=== PATIENT | male | born 1940 | race Caucasian/White ===

== ENCOUNTER → 2017-02-08 09:38 | Outpatient (CLI) | payer MEDICARE ==
[2016-01-17 13:26] VITALS: BMI 42.5
[~2017-02-08 09:38] MED LIST: ADIPEX-P37.5 MG PO; AMBIEN10 MG PO; HYDROCODONE-APA1 TAB PO; IBUPROFEN800 MG PO; LYRICA50 MG PO; MOBIC7.5 MG PO; PLAVIX75 MG PO; PRAVACHOL40 MG PO; PRILOSEC20 MG PO; TEKTURNA300 MG PO; TRIBENZOR 40-51 EAC1 PO; ZANTAC150 MG PO
== END | disposition home or self-care (01) ==
LOC: D.US 09:38
DX: I65.23 Occlusion and stenosis of bilateral carotid arteries (principal)

== ENCOUNTER → 2018-02-04 08:33 | Outpatient (CLI) | payer MEDICARE ==
[2016-01-17 13:26] VITALS: BMI 42.5
== END | disposition home or self-care (01) ==
LOC: D.HCCARDIO 08:33
DX: I25.10 Atherosclerotic heart disease of native coronary artery without angina pectoris (principal)

== ENCOUNTER 2018-02-19 10:55 | Outpatient (CLI) | payer MEDICARE ==
[~2018-02-19] VITALS: Ht 180.3 cm; Wt 140.9 kg
--- NOTE | ~2018-02-19 | HEMODYNAMI ---
PATIENT:GARLAND CHICAS MEDICAL RECORD: [id number] : 44 LOCATION:[facility] ADMISSION DATE: 02/19/18 Generatedon:02/19/201813:38 Patient name: GARLAND CHICAS Patient #: [id number] SSN: : [id number] Date of study: 02/19/2018 Page: Of Hemodynamic Procedure Report Patient Data Patient Demographics Procedure consent was obtained First Name: GARLAND Gender: Male Last Name: AVIVA : 1940 [facility] Initial: JULIO Age: 77 year(s) Patient #: [id number] Race: Unknown Additional ID: [id number] Contact details Address: [address] [place], [place] [address] State: [place] City: [place] Zip code: [address] Past Medical History Allergies Allergen Reaction Date Comments Reported Sulfa drugs 01/17/2016 Sulfa drugs 02/19/2018 Admission Admission Data Admission Date: 02/19/2018 Admission Time: 10:55 Admit Source: Other Lab Results Lab Result Date: 02/19/2018 Lab Result Time: 0:00 Biochemistry Name Units Result Min Max BUN mg/dl 26 --(----)-* 7 18 Creatinine mg/dl 1.1 --(--*-)-- 0.6 1.3 CBC Name Units Result Min Max Hemoglobin g/dl 13.5 --(*---)-- 13.5 17.5 Procedure Procedure Types Cath Procedure Diagnostic Procedure LHC LHC w/Coronaries Procedure Description Procedure Date Procedure Date: 02/19/2018 Procedure Start Time: 13:12 Procedure End Time: 13:37 Procedure Staff Name Function Jameson Nolan RT Monitor Toni Moore RN Nurse Jong Ahumada MD Performing Physician Gerry Saavedra RT Scrub Procedure Data Cath Procedure Fluoroscopy Diagnostic fluoroscopy Total fluoroscopy Time: 2.3 time: 2.3 min min Diagnostic fluoroscopy Total fluoroscopy dose: dose: 593.45 mGy 593.45 mGy Contrast Material Contrast Material Type Amount (ml) Isovue 300 103 Entry Location Entry Primary Successful Side Size Upsize Upsize Entry Closure Succes sful Closure Location (Fr) 1 (Fr) 2 (Fr) Remarks Device Remarks Femoral Right 5 Fr Exoseal artery Diagnostic catheters Device Type Used For End Catheter Placement MULTIPACK JL 4.0 5Fr Left Coronary catheter Angiography MULTIPACK 3DRC 5Fr Right Coronary catheter Angiography MULTIPACK Pigtail 5 Fr LV Angiography catheter Procedure Complications No complications Procedure Medications Medication Administration Route Dosage Oxygen etCO2 Nasal cannula 2 l/min Heparin Flush Bag added to field 2 bags (1000units/500ml NS) 0.9% NaCl I.V. 100 ml/hr Fentanyl I.V. 50 mcg Versed I.V. 1 mg Fentanyl I.V. 50 mcg Versed I.V. 1 mg Fentanyl I.V. 50 mcg Fentanyl I.V. 50 mcg Versed I.V. 1 mg Versed I.V. 1 mg Hemodynamics Rest HGB: 13.5 (g/dl) Heart Rate: 77 (bpm) Pressure Samples Time Site Value (mmHg) Purpose Heart Use Rate(bpm) 13:25 LV 132/12,24 Snapshot 71 13:25 LV 134/3,18 EDP 79 13:28 AO 126/61(85) Pullback 74 13:28 LV 133/8,22 Pullback 74 Gradients Valve Time Site 1 Site 2 Mean SEP/DFP Peak To Heart Use (mmHg) (sec/min) Peak Rate (mmHg) (bpm) Aortic 13:28 LV AO 11 16 7 74 133/8,22 126/61(85) Calculations Valve P-P Mean Valve Index Valve Source Name Gradient Area Flow (cm2) Aortic 7 11 7 11 Snapshots Pre Cath Intra NCS Post Cath Vital Signs Time Heart Resp SPO2 etCO2 NIBP (mmHg) Rhythm Pain Sedation Rate (ipm) (%) (mmHg) Status Level (bpm) 13:04:16 72 16 98 40 163/78(123) NSR 0 (11) 10(A) , No pain 13:08:59 78 16 96 25.6 144/67(107) NSR 0 (11) 10(A) , No pain 13:13:35 72 16 96 36.2 137/74(97) NSR 0 (11) 10(A) , No pain 13:18:11 68 16 94 40.7 147/68(111) NSR 0 (11) 9(A) , No pain 13:22:50 78 17 97 31.6 134/73(100) NSR 0 (11) 9(A) , No pain 13:27:25 68 16 96 33.1 143/64(99) NSR 0 (11) 9(A) , No pain 13:32:03 71 16 96 40.7 141/66(105) NSR 0 (11) 9(A) , No pain 13:34:25 75 18 96 33.2 137/69(100) NSR 0 (11) 9(A) , No pain Medications Time Medication Route Dose Verified Delivered Reason Notes Effe ctiveness by by 13:03:33 Oxygen etCO2 2 Jong Toni Per Nasal l/min Brandyn Moore RN physician cannula 13:03:41 Heparin Flush added 2 Jong Toni used for Bag to bags rBandyn Moore boiler/chiller technician (1000units/500ml field NS) 13:03:50 0.9% NaCl I.V. 100 Jong Toni Per ml/hr Brandyn Moore RN physician 13:11:49 Fentanyl I.V. 50 Jong Toni for mcg Brandyn Moore RN sedation 13:11:56 Versed I.V. 1 mg Jong Toni for Brandyn Moore RN sedation 13:13:25 Fentanyl I.V. 50 Jong Toni for mcg Brandyn Moore RN sedation 13:13:29 Versed I.V. 1 mg Jong Toni for Brandyn Moore RN sedation 13:16:15 Fentanyl I.V. 50 Jong Toni for mcg Brandyn Moore RN sedation 13:19:17 Fentanyl I.V. 50 Jong Toni for mcg Brandyn Moore RN sedation 13:22:08 Versed I.V. 1 mg Jong Toni for Brandyn Moore RN sedation 13:26:42 Versed I.V. 1 mg Jong Toni for Brandyn Moore RN sedation Procedure Log Time Note 12:40:50 Admit Source: Other 12:41:08 Diagnostic Cath status Elective 12:41:11 Toni Moore RN sent for patient. Start room use. 12:42:04 Time tracking: Regular hours (M-F 7:00 - 5:00) 12:42:09 Plan of Care:Hemodynamics will remain stable., Cardiac rhythm will remain stable., Comfort level will be maintained., Respiratory function will remain adequate., Patient/ family verbilizes understanding of procedure., Procedure tolerated without complication., Recovers from procedure without complications.. 12:44:58 H&P Date Dictated: 02/19/2018 Within 30 days and on chart.. 12:45:23 Lab Result : BUN 26 mg/dl 12:45:23 Lab Result : Creatinine 1.1 mg/dl 12:45:23 Lab Result : Hemoglobin 13.5 g/dl 13:02:39 Vital chart was started 13:03:33 Oxygen 2 l/min etCO2 Nasal cannula was administered by Toni Moore RN; Per physician; 13:03:41 Heparin Flush Bag (1000units/500ml NS) 2 bags added to field was administered by Toni Moore RN; used for procedure; 13:03:50 0.9% NaCl 100 ml/hr I.V. was administered by Toni Moore RN; Per physician; 13:08:40 Patient received from Pre/Post Procedure Room to CCL 3 Alert and oriented. Tansferred to table in Supine position. 13:08:41 Warm blankets applied, and narciso hugger turned on for patient comfort. 13:08:41 Correct patient and procedure confirmed by team. 13:08:42 Signed procedure consent form obtained from patient. 13:08:43 ECG and BP/O2 sat monitors applied to patient. 13:08:44 Baseline sample Acquired. 13:08:46 Rhythm: sinus rhythm 13:08:47 Full Disclosure recording started 13:08:49 Pre-procedure instructions explained to patient. 13:08:52 Family in waiting room. 13:08:54 Patient NPO since Midnight. 13:09:03 Patient allergic to Sulfa drugs 13:09:12 Is the patient allergic to Iodine/contrast media? No. 13:10:41 Is patient on blood thinner?No 13:10:43 Patient diabetic? No. 13:10:46 If diabetic: On Metformin? No 13:10:47 ----Pre-sedation anethsthesia assessment.---- 13:10:51 Previous problem with sedation/anesthesia? No ? 13:10:52 Snore? Yes 13:10:53 Sleep apnea? Yes 13:10:54 Deviated septum? No 13:10:55 Opens mouth fully? Yes 13:10:57 Sticks out tongue? Yes 13:10:59 Airway obstruction? No ? 13:11:00 Dentures? Yes ? 13:11:02 Dentures? No ? 13:11:04 Pre procedure: right dorsailis pedis pulse 2+ Normal; easily identifiable; not easily obliterated 13:11:14 IV patent on arrival in left antecubital with 0.9% NaCl at 10ml/hr. 13:11:16 Lab results completed and on chart. 13:11:19 Right groin area was prepped with chlora-prep and draped in sterile fashion 13:11:20 Alarms reviewed by R. N. 13:11:21 Sharps counted by scrub and verified by R.N. 13:11:22 Physician arrived 13:11:22 --------ALL STOP TIME OUT------ 13:11:23 Final Timeout: patient, procedure, and site verified with staff and physician. All members of the team are in agreement. 13:11:25 Right groin site verified by team. 13:11:30 Physical assessment completed. ASA score P 2 - A patient with mild systemic disease as per Jong Ahumada MD. 13:11:34 Sedation plan: IV Moderate Sedation Medication:Versed, Fentanyl 13:11:37 Use device set Femoral Dx 13:11:38 ACIST Syringe (56681) opened to sterile field. 13:11:39 Bag Decanter (2002) opened to sterile field. 13:11:39 Medline Cath Pack ([id number]) opened to sterile field. 13:11:40 DIAGNOSTIC WIRE .035 260cm J wire (016367) opened to sterile field. 13:11:42 ACIST Hand Control (98132) opened to sterile field. 13:11:42 ACIST Manifold (72863) opened to sterile field. 13:11:42 DIAGNOSTIC Multipack 5Fr catheter set (CE4643) opened to sterile field. 13:11:45 SHEATH 5FR [place] (QCQ995) opened to sterile field. 13:11:49 Fentanyl 50 mcg I.V. was administered by Toni Moore RN; for sedation; 13:11:56 Versed 1 mg I.V. was administered by Toni Moore RN; for sedation; 13:12:02 Procedure started. 13:12:09 Local anesthetic to right femoral artery with Lidocaine 2% by Jong Ahumada MD.INITIAL ACCESS ONLY 13:12:18 A 5 Fr sheath was inserted into the Right Femoral artery 13:12:28 A MULTIPACK JL 4.0 5Fr catheter was advanced over the wire and used for Left Coronary Angiography. 13:12:30 Tegaderm 4 x 4 (1626W) opened to sterile field. 13:12:33 Zero performed for pressure channel P1 13:13:25 Fentanyl 50 mcg I.V. was administered by Toni Moore RN; for sedation; 13:13:29 Versed 1 mg I.V. was administered by Toni Moore RN; for sedation; 13:14:22 Baseline sample Acquired. 13:14:31 LCA angiography performed. 13:16:15 Fentanyl 50 mcg I.V. was administered by Toni Moore RN; for sedation; 13:19:17 Fentanyl 50 mcg I.V. was administered by Toni Moore RN; for sedation; 13:19:51 Catheter exchanged over wire. 13:22:08 Versed 1 mg I.V. was administered by Toni Moore RN; for sedation; 13:23:21 A MULTIPACK 3DRC 5Fr catheter was advanced over the wire and used for Right Coronary Angiography. 13:23:26 RCA angiography performed. 13:23:28 Catheter exchanged over wire. 13:23:36 5 Fr jl 4 guide catheter was inserted over the wire 13:23:40 LCA angiography performed. 13:24:59 Catheter exchanged over wire. 13:25:07 A MULTIPACK Pigtail 5 Fr catheter was advanced over the wire and used for LV Angiography. 13:25:43 LV gram done using DENISE 13:25:50 EF : 50 % 13:26:42 Versed 1 mg I.V. was administered by Toni Moore RN; for sedation; 13:28:59 LV hemodynamics recorded. 13:29:02 Catheter exchanged over wire. 13:29:49 EXOSEAL 5Fr (EX500) opened to sterile field. 13:30:00 Sheath removed intact; hemostasis achieved with Exoseal to the Right Femoral artery. 13:30:02 Procedure ended.(Physican Out) 13:30:19 Fluoroscopy time 02.30 minutes. 13:30:30 Fluoroscopy dose: 593.45 mGy 13:30:30 Flurop Dose total: 593.45 13:30:36 Contrast amount:Isovue 300 103ml. 13:30:42 Sharps counted by scrub and verified by R.N. 13:30:53 Insertion/operative site no bleeding no hematoma. 13:31:03 Post-op/insertion site Right Femoral artery dressed using a 4 x 4 and Tegaderm. 13:31:18 Post right femoral artery:stable 13:31:20 Post Procedure Pulses reassessed and unchanged 13:31:23 Post procedure: right dorsailis pedis pulse 2+ Normal; easily identifiable; not easily obliterated. 13:31:28 Post procedure rhythm: sinus rhythm 13:31:30 Post procedure instruction explained to patient.Patient verbalizes understanding. 13:31:36 Procedure and supply charges have been captured, reviewed, submitted and are correct. 13:32:09 Procedure Complication : No complications 13:32:11 Vital chart was stopped 13:32:12 See physician's report for complete and final results. 13:32:18 Report given to Pre/Post Procedure Room. 13:32:21 Patient transfered to Pre/Post Procedure Room with Stretcher. 13:37:29 Procedure ended. 13:37:29 Full Disclosure recording stopped 13:37:33 End room use (Document Last) Device Usage Item Name Manufacture Quantity Catalog Hospital Part Current Minimal L ot# / Number Charge Number Stock Stock Serial# Code ACIST Acist 1 86634 546573 016476 112640 20 Syringe Medical (46947) Systems Pathfinder App Bag Microtek 1 686605 31324 230031 5 Decanter Medical Inc. () Medline Medline 1 [id number] 662287 37233 519192 5 Cath Pack ([id number]) DIAGNOSTIC St Mruray 1 446621 273762 737591 159951 30 WIRE .035 260cm J wire (671144) ACIST Hand Acist 1 58498 287150 551833 157747 5 Control Medical (13042) Systems Inc ACIST Acist 1 57414 557645 023135 383821 5 Manifold Medical (63959) Systems Inc DIAGNOSTIC Cardinal 1 LW7718 986640 85534 654069 30 M-[facility] 5Fr catheter set (NI3032) SHEATH 5FR Terumo 1 [id number] 691549 771235 675132 5 [place] (CDJ452) MULTIPACK Cardinal 1 440971 5 JL 4.0 5Fr Health catheter Tegaderm 4 3M 1 1626W 957829 634518 852645 5 x 4 (1626W) MULTIPACK Cardinal 1 199547 5 3DRC 5Fr Health catheter MULTIPACK Cardinal 1 899714 5 Pigtail 5 Health Fr catheter EXOSEAL 5Fr Cardinal 1 EX500 659447 794139 824645 10 (EX500) Health Signature Audit Hewitt Stage Time Signature Unsigned Intra-Procedure 02/19/2018 Jameson Nolan RT(R) 1:38:48 PM Signatures Monitor : Jameson Nolan RT Signature : Date : Time : [address] [address]
[2018-02-19] MEDS ORDERED: K-DUR20 MEQ PO (11:17)
[2018-02-19] MEDS ORDERED: FUROSEMIDE40 MG PO (11:17)
[2018-02-19] MEDS ORDERED: FLOMAX0.4 MG PO (11:17)
[2018-02-19] MEDS ORDERED: BISOPROLOL-HCT1 EAC1 PO (11:20)
[2018-02-19] MEDS ORDERED: BAYER CHEWABLE81 MG PO (11:20)
[2018-02-19 11:33] VITALS: BP 134/62; Ht 180.3 cm; Wt 140.9 kg
[2018-02-19 11:51] LABS: BASOPHILS 0.4 % (0-2); EOSINOPHILS 2.7 % (0-7); HEMATOCRIT 41.3 % (42.0-54.0); HEMOGLOBIN 13.5 g/dL (13.5-17.5); IMMATURE GRANULOCYTES 0.2 % (0-5); LYMPHOCYTES 15.9 % (15-50); MCHC 32.7 g/dL (31.0-37.0); MCV 91.8 fL (80.0-100.0); MEAN PLATELET VOLUME 9.7 fL (7.4-10.4); MONOCYTES 10.5 % (2-11); NEUTROPHILS 70.3 % (40-80); PLATELET COUNT 273 10x3/uL (130-400); RDW 14.5 % (11.5-14.5); WBC 9.1 10x3/uL (4.8-10.8)
[2018-02-19 12:02] LABS: ANION GAP 13.3 mmol/L (8-16); CALCIUM 8.5 mg/dL (8.5-10.1); CARBON DIOXIDE 29.5 mmol/L (21.0-32.0); CREATININE - SERUM 1.1 mg/dL (0.6-1.3); POTASSIUM - SERUM 3.8 mmol/L (3.5-5.1)
== END 2018-02-19 16:00 | disposition home or self-care (01) ==
LOC: D.CATH 10:55
PROVIDERS: Internal Medicine Cardiovascular Disease
DX: I20.9 Angina pectoris, unspecified (principal); I10 Essential (primary) hypertension; E78.5 Hyperlipidemia, unspecified; J45.909 Unspecified asthma, uncomplicated; G47.30 Sleep apnea, unspecified; M19.90 Unspecified osteoarthritis, unspecified site; Z88.2 Allergy status to sulfonamides; Z79.1 Long term (current) use of non-steroidal anti-inflammatories (NSAID); Z79.891 Long term (current) use of opiate analgesic; Z79.899 Other long term (current) drug therapy; Z01.812 Encounter for preprocedural laboratory examination

== ENCOUNTER 2018-04-08 11:56 | Day surgery (SDC) | payer MEDICARE ==
[~2018-04-08] VITALS: Ht 180.3 cm; Wt 140.9 kg
[~2018-04-08 11:56] MED LIST changes: +BAYER CHEWABLE81 MG PO; +BISOPROLOL-HCT1 EAC1 PO; +FLOMAX0.4 MG PO; +FUROSEMIDE40 MG PO; +K-DUR20 MEQ PO
[2018-04-08 12:35] LABS: BASOPHILS 0.4 % (0-2); EOSINOPHILS 1.5 % (0-7); HEMATOCRIT 38.8 % (42.0-54.0); HEMOGLOBIN 12.5 g/dL (13.5-17.5); IMMATURE GRANULOCYTES 0.2 % (0-5); MCH 29.1 pg (26.0-34.0); MCHC 32.2 g/dL (31.0-37.0); MCV 90.2 fL (80.0-100.0); MEAN PLATELET VOLUME 9.8 fL (7.4-10.4); MONOCYTES 6.3 % (2-11); NEUTROPHILS 74.6 % (40-80); PLATELET COUNT 261 10x3/uL (130-400); RDW 15.1 % (11.5-14.5); WBC 9.3 10x3/uL (4.8-10.8)
[2018-04-08 13:02] LABS: ANION GAP 18.5 mmol/L (8-16); CALCIUM 8.8 mg/dL (8.5-10.1); CARBON DIOXIDE 26.2 mmol/L (21.0-32.0); CREATININE - SERUM 1.1 mg/dL (0.6-1.3); POTASSIUM - SERUM 3.7 mmol/L (3.5-5.1)
[2018-04-08 13:52] VITALS: BP 136/72; Ht 180.3 cm; Wt 140.9 kg
--- NOTE | 2018-04-08 17:07 | NUR ---
1635 B/P 180/90. PT HAS RECEIVED 800CC IV FLUIDS IN PREOP AND PROCEDURE. PT UP TO BR TO VOID. 1640 B/P 153/76. PT DENIES CHEST PAIN. STATES HE FEELS FINE. ENCOURAGED PT TO KEEP A CHECK ON HIS B/P AT HOME AND TO CALL THE DR IF IT GOES UP AGAIN OR GO TO THE ED. PT VERBALIZES UNDERSTANDING. PT'S DAUGHTER AWARE OF KEEPING A CHECK ON HIS B/P.
--- NOTE | 2018-04-10 13:50 | OP ---
PATIENT NAME: GARLAND CHICAS MEDICAL RECORD: [id number] :44 LOCATION:[facility] ADMISSION DATE: SURGEON: YENI ESCOBAR DO DATE OF OPERATION: 04/08/2018 PROCEDURE: Colonoscopy with polypectomy. INDICATIONS FOR PROCEDURE: Lower abdominal pain, constipation, stool DNA based colorectal cancer screening positive. SCOPE: Olympus video pediatric colonoscope. MEDICATIONS: Propofol 700 mg IV per anesthesia. WITHDRAWAL TIME: 27 minutes. ESTIMATED BLOOD LOSS: Minimal. COMPLICATIONS: None. FINDINGS: Informed consent was given. The patient was made comfortable with the above medication. After reaching an adequate level of sedation by slow IV push, the patient was placed on his left side. A digital rectal examination was performed and was normal. The endoscope was advanced under direct visualization through the rectum to the cecum, confirmed by the presence of the appendiceal orifice and the ileocecal valve. The endoscope was slowly withdrawn and mucosa was carefully examined. The prep quality was good. There was evidence of moderate diverticulosis involving descending and sigmoid colon. There was no evidence of diverticulitis. There were multiple polyps visualized on today's examination. In the ascending colon, there were 5 separate benign-appearing sessile polyps, which ranged in size from 2-4 mm in diameter. They were all removed using hot forceps. In the transverse ____, there was a single polyp, which was benign appearing and sessile, measured approximately 5 mm in diameter. It was removed using a hot snare. In the sigmoid ____, there were 2 separate polyps which were benign appearing and sessile. They ranged in size from 3-5 mm in diameter. They were removed using a combination of hot forceps and hot snare. Also in the sigmoid colon, there was a benign-appearing pedunculated tissue, which appeared to be lipomatous. It was located at 35 cm. Cold forceps biopsies were obtained to send for histopathology. The endoscope was retroflexed in the rectum with a normal-appearing rectal wall. The endoscope was withdrawn from the patient. The patient tolerated the procedure well and there were no complications. IMPRESSIONS: 1. Multiple polyps as described above, removed using combination of hot forceps and hot snare. 2. Moderate diverticulosis of descending and sigmoid colon. 3. Otherwise normal colonoscopy. PLAN AND RECOMMENDATIONS: 1. Discharge home when recovery parameters are met. 2. Follow up biopsy specimen results. 3. High-fiber diet. 4. Supplement diet with one tablespoon of Metamucil or another psyllium husk fiber daily. OPERATIVE REPORT [id number] GARLAND CHICAS 5. Recall colonoscopy in 2 years. TRANSINT:[id number] Voice Confirmation ID: [id number] DOCUMENT ID: [id number] YENI ESCOBAR DO at 1350 CC: [id number] DICTATION DATE: 04/08/18 1600 [place] [employer]RAT[employer] JUDGE: 04/08/[id number] [facility] 04/08/18 [id number] [place] [address]
== END 2018-04-08 16:55 | disposition home or self-care (01) ==
LOC: D.OPS 11:56
PROVIDERS: Anesthesiology
DX: K57.30 Diverticulosis of large intestine without perforation or abscess without bleeding (principal); K63.5 Polyp of colon; D12.2 Benign neoplasm of ascending colon; D12.5 Benign neoplasm of sigmoid colon; D12.3 Benign neoplasm of transverse colon; Z01.812 Encounter for preprocedural laboratory examination

== ENCOUNTER 2018-04-12 09:30 | Inpatient (IN) | payer MEDICARE ==
[~2018-04-12] VITALS: Ht 180.3 cm; Wt 147.7 kg
[2018-04-12] MEDS ORDERED: ZIAC 5-6.25 MG1 TAB PO (10:21)
[2018-04-12] MEDS ORDERED: TYLENOL PO (10:24)
[2018-04-12] MEDS ORDERED: NIASPAN500 MG PO (10:25)
[2018-04-12 11:28] LABS: APPEARANCE CLEAR (CLEAR); BILIRUBIN NEGATIVE (NEGATIVE); COLOR YELLOW (YELLOW); GLUCOSE NEGATIVE (NEGATIVE); KETONE NEGATIVE (NEGATIVE); NITRITE NEGATIVE (NEGATIVE); PROTEIN NEGATIVE (NEGATIVE); SPECIFIC GRAVITY 1.005 (1.005-1.020); UROBILINOGEN NORMAL (NORMAL)
[2018-04-12 12:27] LABS: BASOPHILS 0.5 % (0-2); HEMATOCRIT 37.2 % (42.0-54.0); IMMATURE GRANULOCYTES 0.3 % (0-5); LYMPHOCYTES 16.5 % (15-50); MCH 29.1 pg (26.0-34.0); MCHC 32.3 g/dL (31.0-37.0); MCV 90.3 fL (80.0-100.0); MEAN PLATELET VOLUME 9.7 fL (7.4-10.4); MONOCYTES 10.8 % (2-11); NEUTROPHILS 68.9 % (40-80); PLATELET COUNT 236 10x3/uL (130-400); RBC 4.12 10x6/uL (4.20-6.10); RDW 15.2 % (11.5-14.5); WBC 10.3 10x3/uL (4.8-10.8)
[2018-04-12 12:50] LABS: APTT 31.4 SECONDS (22.8-39.4); INR 1.31 (0.85-1.17); PROTIME 15.8 SECONDS (11.6-15.0)
[2018-04-12 12:51] LABS: ALBUMIN 3.6 g/dL (3.4-5.0); ANION GAP 14.3 mmol/L (8-16); BILIRUBIN - TOTAL 0.57 mg/dL (0.2-1.3); CARBON DIOXIDE 29.5 mmol/L (21.0-32.0); CREATININE - SERUM 1.3 mg/dL (0.6-1.3); PHOSPHOROUS 4.7 mg/dL (2.5-4.9); POTASSIUM - SERUM 3.8 mmol/L (3.5-5.1); PROTEIN - SERUM 7.3 g/dL (6.4-8.2); T4 THYROXIN - FREE 0.98 ng/dL (0.76-1.46); THYROID STIMULATING HORMONE 3.52 uIU/mL (0.36-3.74); URIC ACID 8.8 mg/dL (2.6-7.2)
[2018-04-15] VITALS (42 sets, daily range): BP systolic 94–153; BP diastolic 36–60; BMI 44.0
[2018-04-15 13:13] LABS: APTT 30.8 SECONDS (22.8-39.4); INR 1.78 (0.85-1.17); PROTIME 20.1 SECONDS (11.6-15.0)
--- NOTE | 2018-04-15 14:22 | NUR ---
DR HECTOR AND HIS NURSE SPEAKING WITH FAMILY AT THIS TIME.
--- NOTE | 2018-04-15 15:28 | NUR ---
1359 PT RECIEVED TO ROOM SEDATED FROMSURGERY, ETT IN PLACE, PLACED ON VENT BY RT, R IJ CVL DRESSING CDI WITH PLASMALYTE 100ML/HR, AMIODARONE 10ML.HR OR 1MG/MIN (CONFIRMED WITH DR HECTOR TO INFUSE X6 HOURS) AND NITRO STARTED, MIDSTERNAL DRESSING CDI SUBSTERNAL CT X3, 2 YD TOGETHER TO ONE DRAINAGE CHAMBER, ON 20CM SUCTION WITH NO AIR LEAK, SUBSTERNAL RODERICK DRAIN COMPRESSED, RLE HARVEST SITES COBAN GROIN TO ANKLE, PULSES PALPABLE, BECKER DRAINING JANELLE URINE, SON AT BEDSIDE AND SECURITY CODE SET UP, UPDATED BY DR HECTOR AND HAYLEE QUESTIONS,
--- NOTE | 2018-04-15 17:55 | NUR ---
1710 PT EXTUBATED AND WRIST RESTRAINTS REMOVED, COMPLAINING OF BILATERAL SHOULDER PAIN, CHRONIC PAIN, AFTER SPO2 REMAINING 95, PRN MORPHINE ADMINISTERED, PT TOLERATED WELL STATED PAIN IS DECREASED BUT NOT COMPLETLY GONE, O2 4L NC, ENCOURAGED COUGH/DEEP BREATHING, 500 ON IS WITH MUCH ENCOURAGEMENT, CLEVIPREX INITATED PER EMAR TITRATING TO BP, FAMILY LEAVING VISITATION IS ENDING, DENIES ALL NEEDS
--- NOTE | 2018-04-15 18:31 | NUR ---
ORAL RINSE WITH PERIDEX PROVIDED
--- NOTE | 2018-04-15 18:34 | NUR ---
NOTIFIED DR HECTOR OF VS,GTTS,OUTPUTS, ETC, ORDERS FOR LOPRESSOR 2.5MG ORDERED AND VERIFIED.
--- NOTE | 2018-04-15 19:05 | NUR ---
REPORT RECEIVED, SHIFT ASSESSEMENT COMPLETED PER FLOW SHEET. ALERT AND ORIENTED X4. PPP. MIDSTERNAL DRESSING C/D/I. SUBSTERNAL DRESSING C/D/I, X3 CT TO 20 CM SUCTION WITH BLOODY OUTPUT, NO AIR LEAK. X1 LEFT SUBSTERNAL CT TO RODERICK DRAIN, BLOODY OUTPUT, COMPRESSED. SUBSTERNAL TPM WIRES SECURED. BECKER CATHETER TO GRAVITY SECURED, DRAINING JANELLE UOP. RT LEG HARVEST SITES, COBAN DRESSING C/D/I. RT ARTERIAL AND CVP LINED LEVELED AND ZEROED WITH GOOD WAVEFORM. DENIES NEEDS. SEE FLOW SHEET FOR COMPLETE ASSESSMENT. WILL CONTINUE TO MONITOR.
--- NOTE | 2018-04-15 19:05 | NUR ---
ORDERS RECEIVED FROM DAY SHIFT RN TO CALL IF UOP <[address] HECTOR'S ORDERS AND TO KEEP SBP 90-140.
--- NOTE | 2018-04-15 20:00 | NUR ---
COUGH/DEEP BREATHING AND USE OF IS ENCOURAGED, COUGH STRONG/NON-PRODUCTIVE. PULLING 750 X10 ON IS.
--- NOTE | 2018-04-15 20:23 | NUR ---
FAMILY MEMBERS AT BEDSIDE, UPDATE GIVEN, QUESTIONS ANSWERED.
--- NOTE | 2018-04-15 21:02 | NUR ---
SCHEDULED MEDS GIVEN, WATER WITH ICE PROVIDED. DENIES OTHER NEEDS. CALL LIGHT WITHIN REACH.
--- NOTE | 2018-04-15 23:01 | NUR ---
REASSESSMENT COMPLETED PER FLOW SHEET, SEE FOR DETAILS. WATER WITH ICE PROVIDED. DENIES OTHER NEEDS. IS ENCOURAGED, PULLING 750 X10. COUGH NON-PRODUCTIVE. CALL LIGHT WITHIN REACH. WILL CONTINUE TO MONITOR.
--- NOTE | 2018-04-15 23:55 | NUR ---
PLACED PT ON HOME CPAP WITH O2 UNDERNEATH PT STATES FEELS OK
[2018-04-16] VITALS (63 sets, daily range): BP systolic 94–140; BP diastolic 6–69; Ht 180.3 cm; Wt 147.7 kg
--- NOTE | 2018-04-16 01:00 | NUR ---
WATER WITH ICE PROVIDED. DENIES OTHER NEEDS. CALL LIGHT WITHIN REACH.
--- NOTE | 2018-04-16 03:07 | NUR ---
REASSESSMENT COMPLETED PER FLOW SHEET, SEE FOR DETAILS. NO ACUTE DISTRESS NOTED. ICE CHIPS PROVIDED PER HIS REQUEST, DENIES OTHER NEEDS. WILL CONTINUE TO MONITOR. CALL LIGHT WITHIN REACH.
--- NOTE | 2018-04-16 03:45 | NUR ---
XR PERSONNEL AT BEDSIDE FOR AM CHEST XR
--- NOTE | 2018-04-16 06:00 | NUR ---
SUBSTERNAL DRESSING CHANGED. TPM WIRES SECURED. CT'S SECURED. ASSISSTED OOB TO CHAIR. CALL LIGHT WITHIN REACH. WILL CONTINUE TO MONITOR.
[2018-04-16 06:29] LABS: APTT 31.9 SECONDS (22.8-39.4); INR 1.52 (0.85-1.17); PROTIME 17.7 SECONDS (11.6-15.0)
[2018-04-16 06:36] LABS: ALBUMIN 2.8 g/dL (3.4-5.0); ANION GAP 14.1 mmol/L (8-16); BILIRUBIN - TOTAL 0.77 mg/dL (0.2-1.3); CALCIUM 7.2 mg/dL (8.5-10.1); CARBON DIOXIDE 24.5 mmol/L (21.0-32.0); CREATININE - SERUM 1.1 mg/dL (0.6-1.3); POTASSIUM - SERUM 3.6 mmol/L (3.5-5.1); PROTEIN - SERUM 5.6 g/dL (6.4-8.2)
[2018-04-16 06:37] LABS: HEMATOCRIT 34.6 % (42.0-54.0); HEMOGLOBIN 10.9 g/dL (13.5-17.5); MCH 28.7 pg (26.0-34.0); MCHC 31.5 g/dL (31.0-37.0); MCV 91.1 fL (80.0-100.0); RBC 3.8 10x6/uL (4.20-6.10); RDW 15.7 % (11.5-14.5); WBC 14.4 10x3/uL (4.8-10.8)
--- NOTE | 2018-04-16 07:00 | NUR ---
REPORT RECEVED FROM THE OFF GOING RN. SEE ASSESSMENT IN THE PTS FLOW SHEET. RIGHT IJ CVL NOTED. C/D/I. PATENT. SEE IV GTT IN FLOW SHEET. MIDSTERNAL DRESSING C/D/I. SUBSTERNAL DRESSING C/D/I WITH TPM WIRES COILED. CT A AND P NOTED CONNECTED TO SUCTION WITH NO AIR LEAK. SEROUSANGIOUS DRAINAGED NOTED. LEFT RODERICK DRAIN NOTED. COMPRESSED WITH SEROUSANGIOUS DRAINGED. DRESSING C/D/I. RIGHT A LINE NOTED. WRIST GAURD NOTED. CAP REFILL <3 SECONDS. FC NOTED WITH CLEAR, YELLOW URINE. RIGHT LEG HARVEST SITE DRESSING C/D/I. KOBAN DRESSING NOTED FROM THIGH TO ANKLE. PT C/O INCISIONAL/CHEST PAIN. SEE MAR. PT ALREADY SITTING OOB IN HIS BEDSIDE CHAIR. PT PULLS ABOUT 750-1000 ON HIS IS. INSTRUCTED TO SPINT CHEST WHENEVER COUGHING. BREAKFAST TRAY PROVIDED FOR THE PT. CALL LIGHT IN REACH. WILL CONT POC.
--- NOTE | 2018-04-16 09:52 | NUR ---
DYLAN REMOVED PER ORDRES. CATHETER TIP INTACT. DRESSING APPLIED. WILL CONT POC.
--- NOTE | 2018-04-16 10:41 | NUR ---
ASSISTED THE PT WITH REPOSITIONING. PILLOWS PROVIDED UNDER THE PTS BUTTOCKS FOR COMFORT. NO NEEDS AT THIS TIME. CALL LIGHT IN REACH. WILL CONT POC.
--- NOTE | 2018-04-16 11:31 | NUR ---
DR HECTOR INSTRUCTED TO GET THE PT BACK IN BED AND TO GIVE 2 OF MORPHINE. SEE MAR. PT A AND PT PULLED PER DR HECTOR. DRESSING CHANGED PER ORDERS. SITES SHOW NO S/SX OF INFECTION. WILL MONITOR.
--- NOTE | 2018-04-16 14:22 | NUR ---
PT ASSISTED OOB AND INTO HIS BEDSIDE CHAIR. BEFORE THE PT WAS HELPED OOB, A PINK CHAIR FOAM CUSHION WAS PLACED IN THE CHAIR FOR THE PTS COMFORT. PT WEAK AND REQUIRED X2 ASSISTANCE. WILL CONT POC.
--- NOTE | 2018-04-16 19:17 | NUR ---
REPORT RECEIVED, SHIFT ASSESSMENT COMPLETED PER FLOW SHEET. 4 L O2 VIA NC. RT IJ PATENT, DRESSING C/D/I. SUBSTERNAL DRESSING C/D/I, X1 CT TO RODERICK DRAIN COMPRESSED. RT LEG HARVEST SITES OPEN TO AIR, NO DRAINAGE, WELL APPROXIMATED. COUGH/DEEP BREATHING AND USE OF IS ENCOURAGED. COUGH NON-PRODUCTIVE. PULLING 750 ON IS. SEE FLOW SHEET FOR COMPLETE ASSESSMENT. CALL LIGHT WITHIN REACH. WILL CONTINUE TO MONITOR.
--- NOTE | 2018-04-16 20:02 | NUR ---
PATIENT IN A-FIB. CALLED AND SPOKE TO DR. HECTOR. VITAL SIGNS, UOP, AND MEDICATIONS REVIEWED. ORDERS RECEIVED FOR STAT K+ AND MAG, 150 MG AMIODARONE BOLUS, HOLD LOPRESSOR AND CALL BACK WITH LAB RESULTS.
--- NOTE | 2018-04-16 20:03 | NUR ---
BLOOD OBTAINED AND SENT FOR STAT K+ AND MAG.
--- NOTE | 2018-04-16 20:17 | NUR ---
SCHEDULED MEDS GIVEN. LOPRESSOR HELD PER DR. HECTOR'S ORDERS. FAMILY AT BEDSIDE. QUESTIONS ANSWERED. UPDATE GIVEN. PATIENT AND FAMILY BOTH DENY NEEDS. CALL LIGHT WITHIN REACH. WILL CONTINUE TO MONITOR.
--- NOTE | 2018-04-16 20:18 | NUR ---
AMIODARONE BOLUS INFUSING. PATIENT DENIES NEEDS.
[2018-04-16 20:36] LABS: MAGNESIUM - SERUM 2.3 mg/dL (1.8-2.4); POTASSIUM - SERUM 3.6 mmol/L (3.5-5.1)
--- NOTE | 2018-04-16 20:46 | NUR ---
CALLED AND SPOKE TO DR. HECTOR, UPDATE GIVEN, LAB RESULTS AND VITAL SIGNS REVIEWED. ORDERS RECEIVED TO GIVE 40 MEQ KCL OVER 2 HOURS, HOLD SCHEDULED PO POTASSIUM, AND TO START NEOSYNEPHRINE TO KEEP BP 120 OR ABOVE.
--- NOTE | 2018-04-16 21:21 | NUR ---
NEOSYNEPRINE AVAILABLE BY PHARMACY, INITIATED, WILL TITRATE PER DOCTOR'S ORDERS.
--- NOTE | 2018-04-16 23:11 | NUR ---
REASSESSMENT COMPLETED PER FLOW SHEET, SEE FOR DETAILS. NO ACUTE DISTRESS NOTED. NEOSYNEPHRINE INFUSING AT 0.8 MCG/KG/MIN TO MAINTAIN BP WHITHIN ORDERED PARAMETERS. WATER WITH ICE PROVIDED. DENIES OTHER NEEDS. CALL LIGHT WITHIN REACH. WILL CONTINUE TO MONITOR.
[2018-04-17] VITALS (69 sets, daily range): BP systolic 101–139; BP diastolic 37–84
--- NOTE | 2018-04-17 01:02 | NUR ---
CALL LIGHT ANSWERED, ICE CHIPS PROVIDED. DENIES OTHER NEEDS. WILL CONTINUE TO MONITOR.
--- NOTE | 2018-04-17 03:01 | NUR ---
REASSESSMENT COMPLETED PER FLOW SHEET, SEE FOR DETAILS. NO ACUTE DISTRESS NOTED. DENIES NEEDS. CALL LIGHT WITHIN REACH. WILL CONTINUE TO MONITOR.
[2018-04-17 06:19] LABS: HEMATOCRIT 32.4 % (42.0-54.0); HEMOGLOBIN 10.3 g/dL (13.5-17.5); MCH 29.3 pg (26.0-34.0); MCHC 31.8 g/dL (31.0-37.0); MEAN PLATELET VOLUME 9.8 fL (7.4-10.4); RBC 3.52 10x6/uL (4.20-6.10); RDW 16.4 % (11.5-14.5); WBC 15.5 10x3/uL (4.8-10.8)
[2018-04-17 06:38] LABS: ALBUMIN 2.6 g/dL (3.4-5.0); BILIRUBIN - TOTAL 0.96 mg/dL (0.2-1.3); CALCIUM 7.5 mg/dL (8.5-10.1); CARBON DIOXIDE 26.8 mmol/L (21.0-32.0); CREATININE - SERUM 1.2 mg/dL (0.6-1.3); PROTEIN - SERUM 5.9 g/dL (6.4-8.2)
[2018-04-17 06:39] LABS: ANION GAP 12.4 mmol/L (8-16); POTASSIUM - SERUM 4.2 mmol/L (3.5-5.1)
--- NOTE | 2018-04-17 07:00 | NUR ---
REPORT RECEIVED FROM THE OFF GOING RN. SEE ASSESSMENT IN THE PTS FLOW SHEET. PT SITTING OOB IN HIS CHAIR. PT DENIES PAIN AT THIS TIME. O2 AT 2L VIA NC. C/O SLIGHT SOB. AFIB WITH A RATE OF 105-115 NOTED. BP STABLE. SEE IV GTTS IN FLOW SHEET. RIGHT IJ CORDIS NOTED. PATENT. DRESSING C/D/I. MIDSTERNAL DRESSING C/D/I. SUBSTERNAL DRESSING C/D/I WITH TPM WIRES COILED AND A SINGLE LEFT RODERICK DRAIN COMPRESSED WITH SERSOUANGIEOUNOS DRAINAGE. FC NOTED WITH CLEAR, YELLOW URINE. RIGHT LEG INCSIION SITES HEALING WELL WITH NO DRAINAGE. NO S/SX OF INFECTION. BREAKFAST TRAY PROVIDED FOR THE PT. PT COMPLAIN ON HIS BOTTOM BEING SORE "ITS LIKE IV BEEN DRIVING A CAR FOR A LONG TIME". PT STOOD UP WITH X1 ASSISTANCE. NO REDDNESS NOTED. NO SKIN BREAK DOWN. PT STATES STANDING UP RELIEVES THE PRESSURE. CALL LIGHT IN REACH. WILL CONT POC.
--- NOTE | 2018-04-17 09:20 | NUR ---
DR HECTOR STATED TO LEAVE IN THE FC DUE TO ACCURATE I&O'S. HE ALSO STATED TO GO AHEAD AND GIVE THE PO LOPRESSOR.
--- NOTE | 2018-04-17 09:26 | OP ---
PATIENT NAME: GARLAND CHICAS MEDICAL RECORD: [id number] :44 LOCATION:[facility]ANDA D.CV02 ADMISSION DATE:04/15/18 SURGEON: DAMIR HECTOR MD DATE OF OPERATION: 04/15/[address] Felix was the nurses medical assistants phlebotomists surgeon for this case. The use of nurses medical assistants phlebotomists surgeon was necessary for repairing the right greater saphenous vein graft by tying branches and oversewing them. The use of an nurses medical assistants phlebotomists surgeon saved approximately 30 minutes of general anesthetic time. TRANSINT:[id number] Voice Confirmation ID: [id number] DOCUMENT ID: [id number] DAMIR HECTOR MD at 0926 CC: [id number] DICTATION DATE: 04/16/18 1621 STEAM CRANE OPERATOR: 04/16/182015 ADM IN [facility] [address] [id number]
--- NOTE | 2018-04-17 09:26 | OP ---
PATIENT NAME: GARLAND CHICAS MEDICAL RECORD: [id number] :44 LOCATION:D.CVI [id number] ADMISSION DATE:04/15/18 SURGEON: MAYO HECTOR MD DATE OF OPERATION: 04/15/2018 SURGEON: Mayo Hector MD CORRECTION OFFICER REFORMATORY: MOHAN Felix MD and Narciso Staples. OPERATIONS PERFORMED: 1. Coronary artery bypass graft times 3 (left internal mammary to LAD, reverse saphenous vein graft from aorta to obtuse marginal and aorta to posterior descending artery). 2. Endoscopic saphenous vein harvest. PREOPERATIVE DIAGNOSIS: Coronary artery disease. POSTOPERATIVE DIAGNOSIS: Coronary artery disease. ANESTHESIA: General endotracheal anesthesia. ESTIMATED BLOOD LOSS: Total cardiopulmonary bypass with Cell Saver retransfusion. COMPLICATIONS: None. SPECIMENS: None. CONDITION: Stable. DISPOSITION: CV ICU. OPERATIVE FINDINGS: 1. Transesophageal echocardiography revealed good contractility 45% ejection fraction with no valvular incompetence or stenosis, unchanged after cardiopulmonary bypass. 2. Good quality greater saphenous vein, slightly larger in the thigh and this slightly larger portion was used to the obtuse marginal graft. 3. Good quality left internal mammary artery. The LAD was an intraepicardial 1.5-mm vessel with severe posterior plaque extending well down the vessel to near the apex, 1.5-mm probe passed distally to the apex, but would not pass proximally farther than 1 cm. 4. Obtuse marginal more distal branch 1.75-mm. 5. The posterior descending artery was a small thin-walled 1.25-mm vessel. 6. 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 OPERATIVE INDICATION: Coronary artery disease. DESCRIPTION OF PROCEDURE: The patient was brought to the operating suite. General anesthesia was obtained. The patient was prepped and draped. Greater saphenous vein harvested endoscopically in the right lower extremity. Side branches divided with electrocautery. Vessels ligated proximally and distally and removed. Side branches were tied or oversewn. Later the leg was irrigated OPERATIVE REPORT [id number] GARLAND CHICAS and closed in 2 layers and wrapped with an elastic wrap. Median sternotomy incision was made. Subcutaneous tissue was divided by electrocautery. The sternum was divided with a saw. Left hemisternum was elevated. The left pleural cavity was entered. Left internal mammary artery was taken down as a pedicle graft. Sternal retractor was placed. Pericardium was opened. Heparin was given. The aorta was cannulated. Dual-stage venous cannula was inserted. The patient was placed on cardiopulmonary bypass after activated clotting time was appropriately elevated. Sites for distal anastomoses were selected. Retrograde cardioplegia cannula was inserted. Antegrade cardioplegia cannula was inserted. Crossclamp was placed. Cardioplegia was given antegrade and retrograde. This was repeated at 15 minute intervals including down the completed vein grafts. Distal anastomosis was performed in standard technique. Proximal anastomosis with single cross-clamp technique. The aortic root de-aired by removing the crossclamp, tying the proximal anastomoses, deairing the vein graft and then restoring flow. The patient resumed a spontaneous rhythm. Proximal and distal anastomotic sites inspected for bleeding. Single 6-0 was in the proximal sites. The patient fully rewarmed and weaned from cardiopulmonary bypass and was stable. The patient was decannulated. Cannulation sites were oversewn. Protamine was given. Drains were placed in the mediastinum and left pleural cavity. The left chest was evacuated and irrigated. Pericardial fat was loosely reapproximated. Hemostasis was ensured. Sternum was closed with wires. Fascia was closed. Subcutaneous tissue was closed. Skin was closed. Dermabond was placed. The needle and sponge counts were reported as correct and the patient was taken to ICU in stable condition. TRANSINT:[id number] Voice Confirmation ID: [id number] DOCUMENT ID: [id number] MAYO HECTOR MD at 0926 CC: BRENDON NOONAN M.D. and REINA MASON [id number] DICTATION DATE: 04/15/18 1451 ELECTROLYSIS INVESTIGATOR: 04/15/[address] [facility] [address] [place] [address]
--- NOTE | 2018-04-17 09:50 | NUR ---
Provided pt with heart healthy consistent carbohydrate diet education
--- NOTE | 2018-04-17 10:18 | NUR ---
URINE SAMPLE COLLECTED FROM THE FC AT THE PORT NEAREST TO THE PT. UA SENT TO THE LAB.
[2018-04-17 10:34] LABS: APPEARANCE CLEAR (CLEAR); COLOR YELLOW (YELLOW)
[2018-04-17 10:35] LABS: BACTERIA FEW /hpf (NONE SEEN); BILIRUBIN NEGATIVE (NEGATIVE); EPITHELIAL CELLS NSEEN /hpf (0-5); GLUCOSE 50 mg/dL (NEGATIVE); KETONE NEGATIVE (NEGATIVE); NITRITE NEGATIVE (NEGATIVE); PROTEIN NEGATIVE (NEGATIVE); RED CELLS - URINE NONE SEEN /hpf (0-5); SPECIFIC GRAVITY 1.015 (1.005-1.020); UROBILINOGEN NORMAL (NORMAL); WHITE CELLS - URINE 0-5 /hpf (0-5)
--- NOTE | 2018-04-17 12:00 | NUR ---
ARIN TITRATED OFF PER BP.
--- NOTE | 2018-04-17 12:15 | NUR ---
ARIN INITIATED PER HTN.
--- NOTE | 2018-04-17 12:30 | NUR ---
MEAL TRAY PROVIDED FOR THE PT.
--- NOTE | 2018-04-17 13:30 | NUR ---
PT ASSISTED BACK INTO BED. PT REQUIRED X1 ASSISTANCE. PT NOW RESTING WITH HIS EYES CLOSED. PT REMAINS IN AFIB. OTHER VSS AT THIS TIME. CALL LIGHT IN REACH. WILL CONT POC.
--- NOTE | 2018-04-17 15:08 | MORECARE ---
CASE MANAGEMENT DISCHARGE SUMMARY PATIENT: GARLAND CHICAS UNIT: [id number] ADM DATE: 04/15/18 AGE: 78 : 42 SEX: M ROOM/BED: D.[facility] AUTHOR: CHAVA RAMÍREZ PHYSICIAN: REFERRING PHYSICIAN: DAMIR HECTOR MD DATE OF SERVICE: 04/17/18 Discharge Plan Patient Name: GARLAND CHICAS [facility] [facility] 1940 Planned Disposition: Inpatient Rehab Anticipated Discharge Date: Discharge Date: Expected LOS: Initial Reviewer: [email or web address] Initial Review Date: 04/16/2018 Generated: 04/17/18 4:07 pm DCPIA - Discharge Planning Initial Assessment Updated by [email or web address]: Faith Shaffer on 04/17/18 3:01 pm * Is the patient Alert and Oriented? Yes * How many steps to enter\exit or inside your home? * PCP [facility] * [facility] * Preadmission Environment Home with Family * ADLs Independent * Equipment CPAP * List name and contact numbers for known caregivers / representatives who currently or will assist patient after discharge: ASIF CHICAS - SPOUSE- [phone] NICKOLAS VICTORIA - DAUGHTER- [phone] ANAMARIA CHICAS- SON- [phone] * Verbal permission to speak to the caregivers and representatives has been obtained from the patient. Yes * Community resources currently utilized None * Additional services required to return to the preadmission environment? No * Can the patient safely return to the preadmission environment? Yes * Has this patient been hospitalized within the prior 30 days at any hospital? No Patient Name: GARLAND CHICAS Page 07080 at 1508 All edits/amendments must be made on the electronic document DICTATION DATE: 04/17/18 1507 LINUX ADMIN: KEITH 04/17/18 1507 RPT#: [id number] DC DATE: STATUS: ADM IN [facility] [address] [place] [address] END OF REPORT
--- NOTE | 2018-04-17 15:25 | MORECARE ---
CASE MANAGEMENT DISCHARGE SUMMARY PATIENT: GARLAND CHICAS UNIT: [id number] ADM DATE: 04/15/18 AGE: 78 : 42 SEX: M ROOM/BED: D.[facility] AUTHOR: DARRELL,DOC PHYSICIAN: REFERRING PHYSICIAN: DAMIR HECTOR MD DATE OF SERVICE: 04/17/18 Discharge Plan Patient Name: GARLAND CHICAS Facility: [facility]:[place] : 1940 Planned Disposition: Inpatient Rehab Anticipated Discharge Date: Discharge Date: Expected LOS: Initial Reviewer: [email or web address] Initial Review Date: 04/16/2018 Generated: 04/17/18 4:25 pm Comments DCP- Discharge Planning Updated by [email or web address]: Faith Shaffer on 04/17/18 2:[address] LATE ENTRY 04/16/18 @ 1330 Patient Name: GARLAND Bejarano CHICAS Admission Status: Elective Accout number: [id number] Admission Date: 04-15-2018 : 1940 Admission Diagnosis:ATHSCL HEART DISEASE OF [place] CORONARY ARTERY W/O ANG Attending: DAMIR HECTOR Current LOS: 2 Anticipated DC Date: Planned Disposition: Inpatient Rehab Primary Insurance: MEDICARE A & B Discharge Planning Comments: CM met with patient and children ( Jhoana & Branden) at bedside. Patient lives at home with his debilitated spouse. (Alyce). He is his 's caregiver which includes lifting her and assisting with all of her ADL's. Patients children are concerned that patient will do to much to soon when he is discharged in regards to care of his spouse. Patient and family are requesting inpatient rehab at [facility]. [phone]. Patient states he does have a CPAP at home but no other medical equipment for himself. Denies any Home health services. Patient may need walk test if 02 is still required upon discharge. CM will continue to follow and assist as needed with discharge planning / needs. Respite Coordinator: Faith Shaffer DCPIA - Discharge Planning Initial Assessment Updated by [email or web address]: Faith Shaffer on 04/17/18 3:01 pm * Is the patient Alert and Oriented? Yes * How many steps to enter\exit or inside your home? * PCP [facility] * [facility] * Preadmission Environment Home with Family * ADLs Independent * Equipment CPAP * List name and contact numbers for known caregivers / representatives who currently or will assist patient after discharge: ALYCE CHICAS - SPOUSE- [phone] JHOANA VICTORIA - DAUGHTER- [phone] BRANDEN CHICAS- SON- [phone] * Verbal permission to speak to the caregivers and representatives has been obtained from the patient. Yes * Community resources currently utilized None * Additional services required to return to the preadmission environment? No * Can the patient safely return to the preadmission environment? Yes * Has this patient been hospitalized within the prior 30 days at any hospital? No Last DP export: 04/17/18 2:07 pm Patient Name: GARLAND CHICAS Page 28984 at 1525 All edits/amendments must be made on the electronic document DICTATION DATE: 04/17/18 1524 FACING END TRIMMER: KEITH 04/17/18 1524 RPT#: [id number] DC DATE: STATUS: ADM IN [facility] [address] [place] [address] END OF REPORT
--- NOTE | 2018-04-17 15:43 | MORECARE ---
CASE MANAGEMENT DISCHARGE SUMMARY PATIENT: GARLAND CHICAS UNIT: [id number] ADM DATE: 04/15/18 AGE: 78 : 42 SEX: M ROOM/BED: D[facility] AUTHOR: DARRELL,DOC PHYSICIAN: REFERRING PHYSICIAN: DAMIR HECTOR MD DATE OF SERVICE: 04/17/18 Discharge Plan Patient Name: GARLAND CHICAS Facility: [facility]:[place] : 1940 Planned Disposition: Inpatient Rehab Anticipated Discharge Date: Discharge Date: Expected LOS: Initial Reviewer: [email or web address] Initial Review Date: 04/16/2018 Generated: 04/17/18 4:43 pm Comments DCP- Discharge Planning Updated by [email or web address]: Faith Shaffer on 04/17/18 2:[address] LATE ENTRY 04/16/18 @ 1330 Patient Name: GARLAND Bejarano CHICAS Admission Status: Elective Accout number: [id number] Admission Date: 04-15-2018 : 1940 Admission Diagnosis:ATHSCL HEART DISEASE OF [place] CORONARY ARTERY W/O ANG Attending: DAMIR HECTOR Current LOS: 2 Anticipated DC Date: Planned Disposition: Inpatient Rehab Primary Insurance: MEDICARE A & B Discharge Planning Comments: CM met with patient and children ( Jhoana & Branden) at bedside. Patient lives at home with his debilitated spouse. (Alyce). He is his 's caregiver which includes lifting her and assisting with all of her ADL's. Patients children are concerned that patient will do to much to soon when he is discharged in regards to care of his spouse. Patient and family are requesting inpatient rehab at [facility]. [phone]. Patient states he does have a CPAP at home but no other medical equipment for himself. Denies any Home health services. Patient may need walk test if 02 is still required upon discharge. CM will continue to follow and assist as needed with discharge planning / needs. Control Officer: Faith Shaffer DCPIA - Discharge Planning Initial Assessment Updated by [id number]: Faith Shaffer on 04/17/18 3:01 pm * Is the patient Alert and Oriented? Yes * How many steps to enter\exit or inside your home? * PCP [facility] * [facility] * Preadmission Environment Home with Family * ADLs Independent * Equipment CPAP * List name and contact numbers for known caregivers / representatives who currently or will assist patient after discharge: ALYCE CHICAS - SPOUSE- [phone] JHOANA VICTORIA - DAUGHTER- [phone] BRANDEN CHICAS- SON- [phone] * Verbal permission to speak to the caregivers and representatives has been obtained from the patient. Yes * Community resources currently utilized None * Additional services required to return to the preadmission environment? No * Can the patient safely return to the preadmission environment? Yes * Has this patient been hospitalized within the prior 30 days at any hospital? No External Providers External Provider: OTHER-OTHER Next Contact Date: Service Request Date: Service Type: Resolution: Reviewer: Comments: Last DP export: 04/17/18 2:25 pm Patient Name: GARLAND CHICAS Page 88833 at 1543 All edits/amendments must be made on the electronic document DICTATION DATE: 04/17/18 1542 MECHANICAL SERVICE TECHNICIAN: KEITH 04/17/18 1542 RPT#: [id number] DC DATE: STATUS: ADM IN [facility] [address] [place] [address] END OF REPORT
--- NOTE | 2018-04-17 15:54 | MORECARE ---
CASE MANAGEMENT DISCHARGE SUMMARY PATIENT: GARLAND CHICAS UNIT: [id number] ADM DATE: 04/15/18 AGE: 78 : 42 SEX: M ROOM/BED: D.02 AUTHOR: DARRELL,DOC PHYSICIAN: REFERRING PHYSICIAN: DAMIR HECTOR MD DATE OF SERVICE: 04/17/18 Discharge Plan Patient Name: GARLAND CHICAS Facility: [facility]:[place] : 1940 Planned Disposition: Inpatient Rehab Anticipated Discharge Date: Discharge Date: Expected LOS: Initial Reviewer: [email or web address] Initial Review Date: 04/16/2018 Generated: 04/17/18 4:53 pm Comments DCP- Discharge Planning Updated by [email or web address]: Faith Shaffer on 04/17/18 2:[address] CM spoke with La in regards to patient and family requesting rehab. La stated to go ahead and start referral process. CM contacted [facility] [phone] spoke with Dory and faxed records as requested. fax [phone]. CM will continue to follow and assist as needed with discharge planning / needs. DCP- Discharge Planning Updated by [email or web address]: Fiath Shaffer on 04/17/18 2:[address] LATE ENTRY 04/16/18 @ 1330 Patient Name: GARLAND CHICAS Admission Status: Elective Accout number: [id number] Admission Date: 04-15-2018 : 1940 Admission Diagnosis:ATHSCL HEART DISEASE OF [place] CORONARY ARTERY W/O ANG Attending: DAMIR HECTOR Current LOS: 2 Anticipated DC Date: Planned Disposition: Inpatient Rehab Primary Insurance: MEDICARE A & B Discharge Planning Comments: CM met with patient and children ( Jhoana & Branden) at bedside. Patient lives at home with his debilitated spouse. (Asif). He is his 's caregiver which includes lifting her and assisting with all of her ADL's. Patients children are concerned that patient will do to much to soon when he is discharged in regards to care of his spouse. Patient and family are requesting inpatient rehab at [facility]. [phone]. Patient states he does have a CPAP at home but no other medical equipment for himself. Denies any Home health services. Patient may need walk test if 02 is still required upon discharge. CM will continue to follow and assist as needed with discharge planning / needs. Production Line Technician: Faith Shaffer DCPIA - Discharge Planning Initial Assessment Updated by [id number]: Faith Shaffer on 04/17/18 3:01 pm * Is the patient Alert and Oriented? Yes * How many steps to enter\exit or inside your home? * PCP [facility] * [facility] * Preadmission Environment Home with Family * ADLs Independent * Equipment CPAP * List name and contact numbers for known caregivers / representatives who currently or will assist patient after discharge: ASIF CHICAS - SPOUSE- [phone] JHOANA VICTORIA - DAUGHTER- [phone] BRANDEN CHICAS- SON- [phone] * Verbal permission to speak to the caregivers and representatives has been obtained from the patient. Yes * Community resources currently utilized None * Additional services required to return to the preadmission environment? No * Can the patient safely return to the preadmission environment? Yes * Has this patient been hospitalized within the prior 30 days at any hospital? No Last DP export: 04/17/18 2:43 pm Patient Name: GARLAND CHICAS Page 80034 at 1554 All edits/amendments must be made on the electronic document DICTATION DATE: 04/17/181552 SERVICE DEPARTMENT MANAGER: KEITH 04/17/181552 RPT#: [id number] DC DATE: STATUS: ADM IN [facility] [address] [place] [address] END OF REPORT
--- NOTE | 2018-04-17 16:30 | NUR ---
PT ASSISTED TO THE BEDSIDE COMMODE. PT STATES HE MIGHT NEED TO HAVE A BM. PT ASSISTED TO THE BSC WITH NO BM NOTED. CLEANSED BOTTOM WITH WIPES AND A YEASTY SMELLING WHITE/YELLOWISH DISCHARGE WAS NOTED ON THE WIPES. DR AYALA NOTIFIED. ORDERS FOR NYSTATIN POWDER.
--- NOTE | 2018-04-17 17:51 | NUR ---
DR AYALA AT THE PTS BEDSIDE.
--- NOTE | 2018-04-17 19:17 | NUR ---
ORAL RINSE WITH PERIDEX PROVIDED
--- NOTE | 2018-04-17 19:30 | NUR ---
REPORT RECEIVED, ASSESSMENT COMPLETED PER FLOW SHEET, PT UP IN BEDSIDE CHAIR, NO ACUTE DISTRESS NOTED, AAOx4, WILL CONTINUE TO ASSESS
--- NOTE | 2018-04-17 21:00 | NUR ---
MEDS GIVEN PER MAY, PT UP TO BEDSIDE COMMODE WITH ASSIST, NO BM NOTED, AFIB ON CM, OXYGEN SAT DECREASED ON 4L VIA NC, OTHER VSS, WILL CONTINUE TO ASSESS
[2018-04-18] VITALS (27 sets, daily range): BP systolic 92–129; BP diastolic 52–77
--- NOTE | 2018-04-18 00:45 | NUR ---
PT UP TO BEDSIDE COMMODE WITH ASSIST
--- NOTE | 2018-04-18 04:38 | NUR ---
PT ASSISTED UP TO BEDSIDE COMMODE, NO BM NOTED AT THIS TIME
[2018-04-18 04:40] LABS: HEMATOCRIT 28.5 % (42.0-54.0); MCH 28.9 pg (26.0-34.0); MCHC 31.6 g/dL (31.0-37.0); MCV 91.6 fL (80.0-100.0); MEAN PLATELET VOLUME 9.9 fL (7.4-10.4); RBC 3.11 10x6/uL (4.20-6.10); RDW 16.3 % (11.5-14.5)
--- NOTE | 2018-04-18 05:00 | NUR ---
PT ASSISTED TO BEDSIDE CHAIR FROM WHEELCHAIR, NO ACUTE DISTRESS NOTED, WILL CONTINUE TO ASSESS
[2018-04-18 05:16] LABS: ALBUMIN 2.4 g/dL (3.4-5.0); ANION GAP 12.1 mmol/L (8-16); BILIRUBIN - TOTAL 0.67 mg/dL (0.2-1.3); CALCIUM 7.5 mg/dL (8.5-10.1); CARBON DIOXIDE 27.6 mmol/L (21.0-32.0); CREATININE - SERUM 1.2 mg/dL (0.6-1.3); POTASSIUM - SERUM 4.7 mmol/L (3.5-5.1); PROTEIN - SERUM 5.7 g/dL (6.4-8.2)
--- NOTE | 2018-04-18 08:08 | NUR ---
PT UP IN CHAIR. DR MAKI HERE. UCAF RATE 120. CARDIZEN ORDERED.
--- NOTE | 2018-04-18 15:40 | MORECARE ---
CASE MANAGEMENT DISCHARGE SUMMARY PATIENT: GARLAND CHICAS UNIT: [id number] ADM DATE: 04/15/18 AGE: 78 : 42 SEX: M ROOM/BED: D[facility] AUTHOR: DARRELL,DOC PHYSICIAN: REFERRING PHYSICIAN: DAMIR HECTOR MD DATE OF SERVICE: 04/18/18 Discharge Plan Patient Name: GARLAND CHICAS Facility: [facility]:[place] : 1940 Planned Disposition: Inpatient Rehab Anticipated Discharge Date: Discharge Date: Expected LOS: Initial Reviewer: [email or web address] Initial Review Date: 04/16/2018 Generated: 04/18/18 4:40 pm Comments DCP- Discharge Planning Updated by [email or web address]: Faith Shaffer on 04/18/18 2:[address] CM called [facility] inpatient Rehab and spoke with Dory to check if records have been received. Dory stated that they did receive records and are reviewing them at this time. She asked if we had a discharge date at this time. DUNCAN explained that at this time we don't asked if they accepted new patients on weekend and she replied that yes they do accept patients on weekend. CM will continue to follow and assist as needed with discharge planning / needs. DCP- Discharge Planning Updated by [email or web address]: Faith Shaffer on 04/17/18 2:[address] CM spoke with La in regards to patient and family requesting rehab. La stated to go ahead and start referral process. CM contacted [facility] [phone] spoke with Dory and faxed records as requested. fax [phone]. CM will continue to follow and assist as needed with discharge planning / needs. DCP- Discharge Planning Updated by [email or web address]: Faith Shaffer on 04/17/18 2:[address] LATE ENTRY 04/16/18 @ 4122 Patient Name: GARLAND CHICAS Admission Status: Elective Accout number: [id number] Admission Date: 04-15-2018 : 1940 Admission Diagnosis:ATHSCL HEART DISEASE OF [place] CORONARY ARTERY W/O ANG Attending: DAMIR HECTOR Current LOS: 2 Anticipated DC Date: Planned Disposition: Inpatient Rehab Primary Insurance: MEDICARE A & B Discharge Planning Comments: CM met with patient and children ( Jhoana & Branden) at bedside. Patient lives at home with his debilitated spouse. (Asif). He is his 's caregiver which includes lifting her and assisting with all of her ADL's. Patients children are concerned that patient will do to much to soon when he is discharged in regards to care of his spouse. Patient and family are requesting inpatient rehab at [facility]. [phone]. Patient states he does have a CPAP at home but no other medical equipment for himself. Denies any Home health services. Patient may need walk test if 02 is still required upon discharge. CM will continue to follow and assist as needed with discharge planning / needs. Preschool Paraprofessional: Faith Shaffer DCPIA - Discharge Planning Initial Assessment Updated by [email or web address]: Faith Shaffer on 04/17/18 3:01 pm * Is the patient Alert and Oriented? Yes * How many steps to enter\exit or inside your home? * PCP [facility] * [facility] * Preadmission Environment Home with Family * ADLs Independent * Equipment CPAP * List name and contact numbers for known caregivers / representatives who currently or will assist patient after discharge: ASIF CHICAS - SPOUSE- [phone] JHOANA VICTORIA - DAUGHTER- [phone] BRANDEN CHICAS- SON- [phone] * Verbal permission to speak to the caregivers and representatives has been obtained from the patient. Yes * Community resources currently utilized None * Additional services required to return to the preadmission environment? No * Can the patient safely return to the preadmission environment? Yes * Has this patient been hospitalized within the prior 30 days at any hospital? No Last DP export: 04/17/18 2:54 pm Patient Name: GARLAND CHICAS Page 86522 at 1540 All edits/amendments must be made on the electronic document DICTATION DATE: 04/18/181538 ORDER PACKER OR PACKAGER: KEITH 04/18/181538 RPT#: [id number] DC DATE: STATUS: ADM IN [facility] [address] [place] [address] END OF REPORT
--- NOTE | 2018-04-18 17:10 | TEE ---
PATIENT:GARLAND CHICAS MEDICAL RECORD: [id number] LOCATION:[place] [address] AGE OF PATIENT: 78 ADMISSION DATE: 04/15/18 SEX: M REFERRING PHYSICIAN: INTERPRETING PHYSICIAN: BAKARI RAYO MD TRANSESOPHAGEAL ECHOCARDIOGRAM Date: 04/15/18 REKHA CHARGE Y INDICATIONS: CABG PREMEDICATIONS: PATIENT'S RESPONSE PROCEDURE DOPPLER MEASUREMENTS: LVIT LA PA RA LVOT RVOT Asc. Ao AV Gradient Peak AV Mean AV Area MV Gradient Peak MV Mean MV Area INTERPRETATION: LVd: 4.5 cm LVs: 3.4 cm Doppler: 2-D: COLOR FLOW DOPPLER NORMAL SALINE STUDY: MISCELLANOUS: DIAGNOSIS: PLAN: Survey Associate:Amparo Ahumada Portfolio Accountant: Radha AVENDAÑO COMMENTS: DATE OF SERVICE: 04/15/2018 PROCEDURE: Transesophageal echo evaluation of valvular structures during bypass surgery. FINDINGS: 1. Left ventricular chamber size is within normal limits. Left ventricular systolic function is normal. Overall ejection fraction estimated at 60%. 2. Left atrium, right atrium and right ventricular chamber sizes are within TRANSESOPHAGEAL ECHOCARDIOGRAM REPORT [id number] GARLAND CHICAS normal limits. 3. Valvular structures have normal structure and motion. 4. Doppler interrogation reveals mild mitral regurgitation, no other valvular insufficiency or stenosis. 5. No evidence of pericardial effusion or left ventricular thrombus. TRANSINT:[id number] Voice Confirmation ID: [id number] DOCUMENT ID: [id number] at 1710 CC: [id number] DICTATION DATE: 04/16/18 1204 FIELD SUPPORT REP: 04/17/18 0351 ADM IN [place] [id number] [place] [address]
--- NOTE | 2018-04-18 21:47 | NUR ---
1912 REPORT RECIEVED, ASSUMED CARE OF PATIENT. 1924 SHIFT ASSESSMENT COMPLETE, PLEASE SEE FLOW SHEETS FOR DETAILS. HEMODYNAMICALLY STABLE, UNCONTROLLED A-FIB NOTED. CONTINUING PLAN OF CARE. 2017 TOELRATED PO MEDS WELL. BACK TO BED WITH ASSIST. HEMODYNAMICALLY STABLE. 2129 SLEEPING, NOTE CONTROLLED A-FIB. HEMODYNAMICALLY STABLE. WILL CONTINUE PLAN OF CARE.
--- NOTE | 2018-04-18 23:00 | NUR ---
REASSESSMENT COMPLETE, PLEASE SEE FLOW SHEETS FOR DETAILS. HEMODYNAMICALLY STABLE, CONTROLLED A-FIB NOTED. DENIES ANY PAIN/NEEDS. 1500 ON I.S. AND COUGHING OBSERVED. TOLERATES WELL. WILL CONTINUE PLAN OF CARE.
[2018-04-19] VITALS (23 sets, daily range): BP systolic 91–140; BP diastolic 56–84
--- NOTE | 2018-04-19 01:00 | NUR ---
SLEEPING, HEMODYNAMICALLY STABLE, CONTROLLED A-FIB NOTED. WILL CONTINUE PLAN OF CARE.
--- NOTE | 2018-04-19 04:56 | NUR ---
0300 REASSESSMENT COMPLETE, PLEASE SEE FLOW SHEETS FOR DETAILS. HEMODYNAMICALLY STABLE, CONTROLLED A-FIB NOTED. PLAN OF CARE CONTINUED. 0500 ACCOMPANIED TO MEDICAL IMAGING, TOLERATED X-RAYS WELL. UP IN CHAIR. HEMODYNAMICALLY STABLE, CONTROLLED A-FIB NOTED. WILL CONTINUE PLAN OF CARE.
[2018-04-19 06:22] LABS: HEMATOCRIT 28.5 % (42.0-54.0); HEMOGLOBIN 8.9 g/dL (13.5-17.5); MCH 29.1 pg (26.0-34.0); MCHC 31.2 g/dL (31.0-37.0); MCV 93.1 fL (80.0-100.0); MEAN PLATELET VOLUME 9.8 fL (7.4-10.4); RBC 3.06 10x6/uL (4.20-6.10); RDW 16.5 % (11.5-14.5)
[2018-04-19 06:47] LABS: ALBUMIN 2.4 g/dL (3.4-5.0); ANION GAP 13.6 mmol/L (8-16); BILIRUBIN - TOTAL 0.68 mg/dL (0.2-1.3); CALCIUM 7.9 mg/dL (8.5-10.1); CARBON DIOXIDE 26.4 mmol/L (21.0-32.0); CREATININE - SERUM 1.2 mg/dL (0.6-1.3); PROTEIN - SERUM 6.1 g/dL (6.4-8.2)
--- NOTE | 2018-04-19 09:25 | NUR ---
Nutrition Follow Up: Chart reviewed Diet: ADA PO Intake: 54% meal avg I<O BM: 04/14/18 - no BM x 5 days Labs and meds reviewed Rec continue current diet as tolerated. RD following.
--- NOTE | 2018-04-19 18:00 | NUR ---
0715-PT AWAKE AND ALERT-SITTING UP IN WHEELCHAIR-KCL RIDER PER S/S STARTED IN [place] ORDERED 0830-PT INSISTENT TO RETURN TO BED -REFUSING TO WAIT FOR PHYSICAL THERPY FOR WALKING ASSISTANCE-ASSISTED PT TO BED-NOTED CONTINUED [facility]-Antoine MORGAN GARNETT MACHINE OPERATOR HELPER SERVICES NOTIFIED AND RELAYED TO DR HECTOR-ORDER RECIEVED AND NOTED 1030-REMAINS IN BED-REFUSING TO GET LV-QSYWKK-FFCO BE GOING TO REHAB ON SUNDAY-STRESSED HAS TO BE ADDRESSED NOW TO HELP DECREASED GENERALIZED EDEMA AND IMPROVE BREATHING-PT PLEASENTLY REFUSED- 1230-PT ASSISTED TO CHAIR-AND ENCOURAGED TO ASSIST SELF TO MAX-INADVERTENTLY STEPPED ON HIS OWN CATHETER-AND HAD TO BE AWARE THIS OCCURED-NOTED BLOOD TINGED URINE-CATHETER ADDRESSED WITH DR HECTORNZYGK-MTGJLEE-FX REFUSED TO HAVE OUT-INFORMED AT HIGHER RISK FOR BLADDER AND KIDNY INFECTIONS-DR HECTOR-ABSOLUTELY MUST BE REMOVED BY 03/20/18- 1330-PT STATED DR HECTOR STATED HE CAN KEEP LONG NEEDED-DR HECTOR WITHIN HEARING DISTANCE AND FIRMLY CORRECTED PT MUST BE REMOVED BY MORNING 1430-PT AMBULATED IN ROOM WITH PHYSICAL THERAPY-REFUSED LONGER AMBULATION IN [place]-RETURNED TO BED 1730-NOTED CONTINUED BLOOD TINGED URINE
--- NOTE | 2018-04-19 19:00 | NUR ---
report received and assessment completed. see flowsheet for full details. vss. will monitor throughout shift.
--- NOTE | 2018-04-19 23:30 | NUR ---
reassessment completed. see flowsheet for full details. vss. will monitor throughout shift
[2018-04-20] VITALS (22 sets, daily range): BP systolic 100–144; BP diastolic 50–97
[2018-04-20 06:49] LABS: HEMATOCRIT 29.3 % (42.0-54.0); HEMOGLOBIN 9.3 g/dL (13.5-17.5); MCH 29.2 pg (26.0-34.0); MCHC 31.7 g/dL (31.0-37.0); MCV 92.1 fL (80.0-100.0); MEAN PLATELET VOLUME 9.1 fL (7.4-10.4); RBC 3.18 10x6/uL (4.20-6.10); RDW 16.1 % (11.5-14.5); WBC 10.7 10x3/uL (4.8-10.8)
--- NOTE | 2018-04-20 07:13 | NUR ---
ORAL CARE DONE
[2018-04-20 07:14] LABS: ALBUMIN 2.4 g/dL (3.4-5.0); ANION GAP 12.5 mmol/L (8-16); BILIRUBIN - TOTAL 0.75 mg/dL (0.2-1.3); CREATININE - SERUM 1.1 mg/dL (0.6-1.3); POTASSIUM - SERUM 4.5 mmol/L (3.5-5.1); PROTEIN - SERUM 6.3 g/dL (6.4-8.2)
--- NOTE | 2018-04-20 18:33 | NUR ---
0715-RECIEVED AWAKE AND ALERT-UP IN CHAIR-STATED HAS AMBULATED TO RESTROOM MULTIPLE TIMES-HEARD PT ACTIVELY WORKING WITH INCENTIVE- 0830-STRESSED TO PT TO STAY UP IN CHAIR AND WAIT FOR PHYSICAL THERAPY-SEE EMAR FOR PAIN MANAGEMENT-PT AGREEABLE 929-PHYSICAL THERAPY-NOT AVAILABLE AT THIS TIME-PT EXPRESSED FRUSTRATION 1030-DR POWELL AT [facility] -STRESSED CATHETER OUT THIS MORNING-PT RELUCTANT AGREEABLE-STRESSED TO WALK-PT VERY RELUCTANT-ABLE TO AMBULATE PT TO DOOR WAY-THEN HELD DOORWAY AND DID NOT MOVE-STRESSED TO AMBULATE PAST DOCTORS DESK AND BACK ON O2 -PT ACHIEVED SAME-ASSISTED TO BED--REQUESTING PAIN PILL FOR REMAOVAL OF CATHETER-REVIEWED RECIEVED ALREADY AND REVIEWED-PROCEDURE TO REMOVE AND TALK THROUGH-REMOVED WITHOUT PT AWARE/DISCOMFORT-
--- NOTE | 2018-04-20 19:00 | NUR ---
REPORT RECEIVED AND ASSESSMENT COMPLETED. SEE FLOWSHEET FOR FULL DETAILS. VSS. WILL CONITNUE TO MONITOR
--- NOTE | 2018-04-20 23:07 | NUR ---
REASSESSMENT COMPLETED. SEE FLOWSHEET FOR FULL DETAILS
[2018-04-21] VITALS (22 sets, daily range): BP systolic 98–149; BP diastolic 53–88
[2018-04-21 06:49] LABS: HEMATOCRIT 29.3 % (42.0-54.0); HEMOGLOBIN 9.2 g/dL (13.5-17.5); MCH 29.1 pg (26.0-34.0); MCHC 31.4 g/dL (31.0-37.0); MCV 92.7 fL (80.0-100.0); MEAN PLATELET VOLUME 9.2 fL (7.4-10.4); RBC 3.16 10x6/uL (4.20-6.10); RDW 16.2 % (11.5-14.5); WBC 10.2 10x3/uL (4.8-10.8)
[2018-04-21 07:02] LABS: ALBUMIN 2.5 g/dL (3.4-5.0); ANION GAP 11.5 mmol/L (8-16); BILIRUBIN - TOTAL 0.57 mg/dL (0.2-1.3); CALCIUM 8.4 mg/dL (8.5-10.1); CARBON DIOXIDE 28.7 mmol/L (21.0-32.0); CREATININE - SERUM 1.1 mg/dL (0.6-1.3); POTASSIUM - SERUM 4.2 mmol/L (3.5-5.1); PROTEIN - SERUM 6.2 g/dL (6.4-8.2)
--- NOTE | 2018-04-21 20:00 | NUR ---
ASSESSMENT COMPLETED. PT AWAKE AND ALERT. DENIES PAIN. ASSISTED UP TO GO TO RESTROOM. STEADY GAIT. DENIES NEEDS
--- NOTE | 2018-04-21 21:30 | NUR ---
ASSISTED PT GETTING CPAP ON.
[2018-04-22] VITALS (21 sets, daily range): BP systolic 107–156; BP diastolic 48–95
--- NOTE | 2018-04-22 06:30 | NUR ---
ASSISTED TO CHAIR FROM BATHROOM. GIVEN WARM BATH WIPES SO HE COULD CLEAN HIMSELF.
--- NOTE | 2018-04-22 09:23 | NUR ---
Diabetic diet ordered with 100% intake of breakfast today Pt reports excellent appetite Pt reports no nutrition related questions at this time Reviewed chart Weight 324lb RD following
--- NOTE | 2018-04-22 10:01 | NUR ---
MORNING MEDICATIONS HAVE BEEN PROVIDED. PT UP IN CHAIR. DENIES ANY ADDITIONAL NEEDS. AWAITING PHYSICAL THERAPY WALK.
--- NOTE | 2018-04-22 11:29 | NUR ---
PT WANTING TO GO BACK TO BED. EXPLAINED WHY NEEDS TO STAY UP TO CHAIR. LET HIM KNOW CAN GO BACK TO BED AFTER DINNER. C/O CHAIR BEING VERY UNCOMFORTABLE. OFFERED TO PLACE ADDITIONAL CUSHIONING UNDER HIM.
--- NOTE | 2018-04-22 11:49 | NUR ---
DR HECTOR NOTIFIED OF [facility] ORDER SCHEDULE CHANGE. IS OK TO GIVE DOSING AT NEW SCHEDULE.
--- NOTE | 2018-04-22 12:45 | NUR ---
PT AT BEDSIDE. ASSISTING WITH BATHING.
--- NOTE | 2018-04-22 14:57 | NUR ---
PT SLEEPING IN CHAIR AT BEDSIDE
--- NOTE | 2018-04-22 18:03 | NUR ---
ORAL RINSE WITH PERIDEX PROVIDED
[2018-04-23] VITALS (21 sets, daily range): BP systolic 99–156; BP diastolic 53–84
--- NOTE | 2018-04-23 08:00 | NUR ---
PT UP IN CHAIR AT BEDSIDE. BREAKFAST TRAY PROVIDED. DENIES ANY ADDITIONAL NEEDS. SHIFT ASSESSMENT HAS BEEN COMPLETED. DISCUSSED GOING TO WALK WITH PHYSICAL THERAPY TODAY AND BEING UP IN CHAIR PART OF THERAPY.
--- NOTE | 2018-04-23 11:33 | NUR ---
RIGHT IJ CENTRAL LINE REMOVED. TIP INTACT. NO BLEEDING. SITE COVERED WITH GAUZE AND TEGADERM DRESSING.
--- NOTE | 2018-04-23 15:02 | MORECARE ---
CASE MANAGEMENT DISCHARGE SUMMARY PATIENT: GARLAND CHICAS UNIT: [id number] ADM DATE: 04/15/18 AGE: 78 : 42 SEX: M ROOM/BED: D.CV02 AUTHOR: DARRELL,DOC PHYSICIAN: REFERRING PHYSICIAN: DAMIR HECTOR MD DATE OF SERVICE: 04/23/18 Discharge Plan Patient Name: GARLAND CHICAS Facility: [facility]:[place] : 1940 Planned Disposition: Inpatient Rehab Anticipated Discharge Date: Discharge Date: Expected LOS: Initial Reviewer: [email or web address] Initial Review Date: 04/16/2018 Generated: 04/23/18 4:02 pm Comments DCP- Discharge Planning Updated by [email or web address]: Faith Shaffer on 04/23/18 2:[address] CM received call from Melina [phone] from [facility]. She was requesting anticipated d/c date. CM stated it could possibly be tomorrow. CM faxed updated clinical. Melina stated they are ready for patient when discharged. Melina requested CM to call when discharge orders received. CM will continue to follow and assist as needed with discharge planning / needs. DCP- Discharge Planning Updated by [email or web address]: Faith Shaffer on 04/18/18 2:[address] CM called [facility] inpatient Rehab and spoke with Dory to check if records have been received. Dory stated that they did receive records and are reviewing them at this time. She asked if we had a discharge date at this time. DUNCAN explained that at this time we don't asked if they accepted new patients on weekend and she replied that yes they do accept patients on weekend. CM will continue to follow and assist as needed with discharge planning / needs. DCP- Discharge Planning Updated by [id number]: Faith Shaffer on 04/17/18 2:[address] CM spoke with La in regards to patient and family requesting rehab. La stated to go ahead and start referral process. CM contacted [facility] [phone] spoke with Dory and faxed records as requested. fax [phone]. CM will continue to follow and assist as needed with discharge planning / needs. DCP- Discharge Planning Updated by [id number]: Faith Edmund on 04/17/18 2:[address] LATE ENTRY 04/16/18 @ 1330 Patient Name: GARLAND CHICAS Admission Status: Elective Accout number: [id number] Admission Date: 04-15-2018 : 1940 Admission Diagnosis:ATHSCL HEART DISEASE OF [place] CORONARY ARTERY W/O ANG Attending: DAMIR HECTOR Current LOS: 2 Anticipated DC Date: Planned Disposition: Inpatient Rehab Primary Insurance: MEDICARE A & B Discharge Planning Comments: CM met with patient and children ( Jhoana & Anamaria) at bedside. Patient lives at home with his debilitated spouse. (Alyce). He is his 's caregiver which includes lifting her and assisting with all of her ADL's. Patients children are concerned that patient will do to much to soon when he is discharged in regards to care of his spouse. Patient and family are requesting inpatient rehab at [facility]. [phone]. Patient states he does have a CPAP at home but no other medical equipment for himself. Denies any Home health services. Patient may need walk test if 02 is still required upon discharge. CM will continue to follow and assist as needed with discharge planning / needs. Automotive Assembler: Faith Shaffer DCPIA - Discharge Planning Initial Assessment Updated by [email or web address]: Faith Pricer on 04/17/18 3:01 pm * Is the patient Alert and Oriented? Yes * How many steps to enter\exit or inside your home? * PCP [facility]LON * [facility] * Preadmission Environment Home with Family * ADLs Independent * Equipment CPAP * List name and contact numbers for known caregivers / representatives who currently or will assist patient after discharge: ALYCE CHICAS - SPOUSE- [phone] JHOANA VICTORIA - DAUGHTER- [phone] ANAMARIA CHICAS- SON- [phone] * Verbal permission to speak to the caregivers and representatives has been obtained from the patient. Yes * Community resources currently utilized None * Additional services required to return to the preadmission environment? No * Can the patient safely return to the preadmission environment? Yes * Has this patient been hospitalized within the prior 30 days at any hospital? No Last DP export: 04/18/18 2:40 pm Patient Name: GARLAND CHICAS Page 36527 at 1502 All edits/amendments must be made on the electronic document DICTATION DATE: 04/23/181501 DOUBLE END TENONER SETTER: KEITH 04/23/181501 RPT#: [id number] DC DATE: STATUS: ADM IN [facility] [address] [place] [address] END OF REPORT
[2018-04-24 00:01] VITALS: BP 122/74
[2018-04-24 01:01] VITALS: BP 122/68
[2018-04-24 02:01] VITALS: BP 136/61
[2018-04-24 03:01] VITALS: BP 129/64
[2018-04-24 04:00] VITALS: BP 133/76
--- NOTE | 2018-04-24 05:00 | NUR ---
PT MOVES AROUND INDEPENDENT. ASSISTED WITH BATH AND LINEN CHANGE. UP TO CHAIR.
[2018-04-24 07:23] VITALS: BP 107/80
--- NOTE | 2018-04-24 07:49 | NUR ---
SHIFT ASSESSMENT COMPLETE. PT UP IN CHAIR. SHOWER CAP PROVIDED REQUESTED BY PATIENT. BREAKFAST TRAY PROVIDED. DENIES ANY ADDITIONAL NEEDS. DENIES PAIN AT THIS TIME. AWAITING DISCHARGE TO REHAB.
--- NOTE | 2018-04-24 10:09 | NUR ---
Nutrition Follow Up: Chart reviewed Diet: ADA PO Intake: 80% meal avg Wt stable BM: 04/21/18 Labs reviewed Meds noted including Lasix, Reglan Rec continue current diet. RD following.
[2018-04-24] MEDS ORDERED: ELIQUIS5 MG PO (11:08)
[2018-04-24] MEDS ORDERED: AMIODARONE HCL200 MG PO (11:08)
[2018-04-24] MEDS ORDERED: LOPRESSOR25 MG PO (11:08)
[2018-04-24] MEDS ORDERED: PERCOCET 5-3251 TAB PO (11:11)
[2018-04-24] MEDS ORDERED: CHLORTHALIDONE25 MG PO (11:11)
[2018-04-24] MEDS ORDERED: Senokot-S Tablet PO (11:12)
[2018-04-24] MEDS ORDERED: PROTONIX40 MG PO (11:12)
[2018-04-24] MEDS ORDERED: COLACE100 MG PO (11:12)
[2018-04-24] MEDS ORDERED: CARDIZEM30 MG PO (11:16)
--- NOTE | 2018-04-24 12:44 | NUR ---
REPORT CALL[facility] TO [facility]STEROS [facility]. [phone]
--- NOTE | 2018-04-24 13:30 | NUR ---
DISCHARGE TEACHING PROVIDED. INSTRUCTED TO MAKE SURE REHAB FACILITY NOTIFIES DR HECTOR OFFICE 48 HRS PRIOR TO D/C FROM THEM. REVIEWED ALL MEDICATIONS AND INSTRUCTED NOT TO TAKE ANY PREVIOUSLY PRESCRIBED MEDICATIONS THAT ARE NOT ON THE DISCHARGE LIST WITHOUT DISCUSSING WITH DR HECTOR OFFICE FIRST. PT BELONGINGS PACKED UP AND READY. HOME CPAP PLACED IN CARRYCASE.
[2018-04-24] MEDS ORDERED: CARDIZEM CD120 MG PO (13:59)
--- NOTE | 2018-04-24 14:16 | NUR ---
DR HECTOR CHANGED DOSING OF PT CARDIZEM. NEW DOSE PROVIDED TO PATIENT AND UPDATED MEDICATION LIST REVIEWED WITH PATIENT AND DAUGHTER OF CHANGE. NEW LIST PROVIDED AND OLD LIST DISCARDED.
--- NOTE | 2018-04-24 14:40 | NUR ---
PT PICKED UP BY [facility] [employer]. DAUGHTER HAS TAKEN ALL OF PT BELONGINGS WITH HER. SPOKE WITH JANIE AT [facility] TO THAT PATIENT HAS LEFT OUR FACILITY.
--- NOTE | 2018-04-24 18:45 | MORECARE ---
CASE MANAGEMENT DISCHARGE SUMMARY PATIENT: GARLAND CHICAS UNIT: [id number] ADM DATE: 04/15/18 AGE: 78 : 42 SEX: M ROOM/BED: D.CV02 AUTHOR: DARRELL,DOC PHYSICIAN: REFERRING PHYSICIAN: DAMIR HECTOR MD DATE OF SERVICE: 04/24/18 Discharge Plan Patient Name: GARLAND CHICAS Facility: [facility]:[place] : 1940 Planned Disposition: Inpatient Rehab Anticipated Discharge Date: Discharge Date: 04/24/2018 Expected LOS: Initial Reviewer: [email or web address] Initial Review Date: 04/16/2018 Generated: 04/24/18 7:44 pm Comments DCP- Discharge Planning Updated by [email or web address]: Faith Shaffer on 04/24/18 5:[address] CM received notice of patient discharge. CM contacted Dory and Melina with [facility], records sent as requested. Dory called back with room # 115 and report to be called to [phone]. She stated she would set up transportation to seed cone picker patient. IMM explained and served to patient @ 1204. CM will continue to follow and assist as needed with discharge planning / needs. DCP- Discharge Planning Updated by [email or web address]: Faith Shaffer on 04/23/18 2:[address] CM received call from Melina [phone] from [facility]. She was requesting anticipated d/c date. CM stated it could possibly be tomorrow. CM faxed updated clinical. Melina stated they are ready for patient when discharged. Melina requested CM to call when discharge orders received. CM will continue to follow and assist as needed with discharge planning / needs. DCP- Discharge Planning Updated by [id number]: Faith Shaffer on 04/18/18 2:[address] CM called [facility] inpatient Rehab and spoke with Dory to check if records have been received. Dory stated that they did receive records and are reviewing them at this time. She asked if we had a discharge date at this time. DUNCAN explained that at this time we don't asked if they accepted new patients on weekend and she replied that yes they do accept patients on weekend. CM will continue to follow and assist as needed with discharge planning / needs. DCP- Discharge Planning Updated by [email or web address]: Faith Shaffer on 04/17/18 2:[address] CM spoke with La in regards to patient and family requesting rehab. La stated to go ahead and start referral process. CM contacted [facility] [phone] spoke with Dory and faxed records as requested. fax [phone]. CM will continue to follow and assist as needed with discharge planning / needs. DCP- Discharge Planning Updated by [email or web address]: Faith Shaffer on 04/17/18 2:[address] LATE ENTRY 04/16/18 @ 1330 Patient Name: GARLAND Bejarano CHICAS Admission Status: Elective Accout number: [id number] Admission Date: 04-15-2018 : 1940 Admission Diagnosis:ATHSCL HEART DISEASE OF [place] CORONARY ARTERY W/O ANG Attending: DAMIR HECTOR Current LOS: 2 Anticipated DC Date: Planned Disposition: Inpatient Rehab Primary Insurance: MEDICARE A & B Discharge Planning Comments: CM met with patient and children ( Jhoana & Anamaria) at bedside. Patient lives at home with his debilitated spouse. (Alyce). He is his 's caregiver which includes lifting her and assisting with all of her ADL's. Patients children are concerned that patient will do to much to soon when he is discharged in regards to care of his spouse. Patient and family are requesting inpatient rehab at [facility]. [phone]. Patient states he does have a CPAP at home but no other medical equipment for himself. Denies any Home health services. Patient may need walk test if 02 is still required upon discharge. CM will continue to follow and assist as needed with discharge planning / needs. It Sales Consultant: Faith Shaffer DCPIA - Discharge Planning Initial Assessment Updated by [email or web address]: Faith Shaffer on 04/17/18 3:01 pm * Is the patient Alert and Oriented? Yes * How many steps to enter\exit or inside your home? * PCP [facility]ON * [facility] * Preadmission Environment Home with Family * ADLs Independent * Equipment CPAP * List name and contact numbers for known caregivers / representatives who currently or will assist patient after discharge: ALYCE CHICAS - SPOUSE- [phone] JHOANA VICTORIA - DAUGHTER- [phone] ANAMARIA CHICAS- SON- [phone] * Verbal permission to speak to the caregivers and representatives has been obtained from the patient. Yes * Community resources currently utilized None * Additional services required to return to the preadmission environment? No * Can the patient safely return to the preadmission environment? Yes * Has this patient been hospitalized within the prior 30 days at any hospital? No Coverage Notice Reviewer: [email or web address] Jackie Shaffer Notice Issued Date-Time: 04/24/2018 12:09 Notice Type: IM Discharge Notice Notice Delivered To: Patient Relationship to Patient: Self Upfitter Name: Delivery Method: HAND - Hand Delivered Anna Days: Prior Verbal Notification: Recipient Understood Notice: Yes Recipient Signature: Yes Med Rec Note Co-signed by Attending: Coverage Notice Comment: Last DP export: 04/23/18 2:02 p Patient Name: GARLAND CHICAS Page [id number] at 1845 All edits/amendments must be made on the electronic document DICTATION DATE: 04/24/181843 HEDIS REGISTERED NURSE RN: KEITH 04/24/181843 RPT#: [id number] DC DATE:04/24/18 STATUS: DIS IN [facility] [address] [place] [address] END OF REPORT
== END 2018-04-24 14:41 | DRG 236 ==
LOC: D.SDCHOLD → D.CVICU 04-15 05:00 → D.SDCHOLD 04-15 07:30 → D.CVICU 04-15 08:34 → D.SDCHOLD 04-15 10:00 → D.CVICU 04-24 14:41
PROVIDERS: Family Medicine; Internal Medicine Cardiovascular Disease; ADMIT Thoracic Surgery (Cardiothoracic Vascular Surgery)
PROC: 021109W Bypass Coronary Artery, Two Arteries from Aorta with Autologous Venous Tissue, Open Approach (ICD-10-PCS; 2018-04-15)
PROC: 06BP4ZZ Excision of Right Saphenous Vein, Percutaneous Endoscopic Approach (ICD-10-PCS; 2018-04-15)
PROC: 5A1221Z Performance of Cardiac Output, Continuous (ICD-10-PCS; 2018-04-15)
PROC: B24BZZ4 Ultrasonography of Heart with Aorta, Transesophageal (ICD-10-PCS; 2018-04-15)
PROC: 02100Z9 Bypass Coronary Artery, One Artery from Left Internal Mammary, Open Approach (ICD-10-PCS; principal; 2018-04-15 07:30)
DX: I25.10 Atherosclerotic heart disease of native coronary artery without angina pectoris (principal); Z68.41 Body mass index [BMI] 40.0-44.9, adult; I48.1 Persistent atrial fibrillation; K21.9 Gastro-esophageal reflux disease without esophagitis; I10 Essential (primary) hypertension; E78.5 Hyperlipidemia, unspecified; J45.909 Unspecified asthma, uncomplicated; E66.01 Morbid (severe) obesity due to excess calories; D64.9 Anemia, unspecified; I65.23 Occlusion and stenosis of bilateral carotid arteries

== ENCOUNTER → 2018-05-08 10:27 | Outpatient (CLI) | payer MEDICARE ==
[2018-04-16 09:19] VITALS: BMI 46.1
[~2018-05-08 10:27] MED LIST changes: +AMIODARONE HCL200 MG PO; +CARDIZEM CD120 MG PO; +CARDIZEM30 MG PO; +CHLORTHALIDONE25 MG PO; +COLACE100 MG PO; +ELIQUIS5 MG PO; +LOPRESSOR25 MG PO; +NIASPAN500 MG PO; +PERCOCET 5-3251 TAB PO; +PROTONIX40 MG PO; +Senokot-S Tablet PO; +TYLENOL PO; +ZIAC 5-6.25 MG1 TAB PO
[2018-05-08 11:13] LABS: HEMATOCRIT 32.4 % (42.0-54.0); HEMOGLOBIN 9.8 g/dL (13.5-17.5); MCH 27.5 pg (26.0-34.0); MCHC 30.2 g/dL (31.0-37.0); MCV 90.8 fL (80.0-100.0); RBC 3.57 10x6/uL (4.20-6.10); RDW 15.7 % (11.5-14.5); WBC 8.8 10x3/uL (4.8-10.8)
[2018-05-08 11:31] LABS: ALBUMIN 3.3 g/dL (3.4-5.0); ANION GAP 13.9 mmol/L (8-16); BILIRUBIN - TOTAL 0.73 mg/dL (0.2-1.3); CALCIUM 8.4 mg/dL (8.5-10.1); CARBON DIOXIDE 28.3 mmol/L (21.0-32.0); CREATININE - SERUM 1.3 mg/dL (0.6-1.3); POTASSIUM - SERUM 4.2 mmol/L (3.5-5.1)
== END | disposition home or self-care (01) ==
LOC: D.RAD 08:00
PROVIDERS: ATTEND Thoracic Surgery (Cardiothoracic Vascular Surgery)
DX: J90 Pleural effusion, not elsewhere classified (principal); D64.9 Anemia, unspecified

== ENCOUNTER → 2018-05-31 08:48 | Outpatient (CLI) | payer MEDICARE ==
[2018-04-16 09:19] VITALS: BMI 46.1
== END | disposition home or self-care (01) ==
LOC: D.RAD 08:48
PROVIDERS: ATTEND Thoracic Surgery (Cardiothoracic Vascular Surgery)
DX: J90 Pleural effusion, not elsewhere classified (principal)

== ENCOUNTER → 2018-09-26 13:21 | Outpatient (CLI) | payer MEDICARE ==
[2018-04-16 09:19] VITALS: BMI 46.1
== END | disposition home or self-care (01) ==
LOC: D.HCCARDIO 13:21
PROVIDERS: ATTEND Internal Medicine Cardiovascular Disease
DX: I25.10 Atherosclerotic heart disease of native coronary artery without angina pectoris (principal)

== ENCOUNTER → 2018-09-26 16:32 | Outpatient (CLI) | payer MEDICARE ==
[2018-04-16 09:19] VITALS: BMI 46.1
[2018-09-26 17:00] LABS: CALC OSMOLALITY 285 mosm/kg (275-300); CALCIUM 8.6 mg/dL (8.5-10.1); CARBON DIOXIDE 29.3 mmol/L (21.0-32.0); CHLORIDE - SERUM 102 mmol/L (98-107); CREATININE - SERUM 0.9 mg/dL (0.6-1.3); GLUCOSE 119 mg/dL (74-106); SODIUM 141 mmol/L (136-145); UREA NITROGEN 23 mg/dL (7-18); eGFR NON AFRICAN AMERICAN 87 mL/min (90-120)
== END | disposition home or self-care (01) ==
LOC: D.LABREF 16:32
PROVIDERS: ATTEND Internal Medicine Cardiovascular Disease
DX: I10 Essential (primary) hypertension (principal)

== ENCOUNTER → 2019-05-02 09:57 | Outpatient (CLI) | payer MEDICARE ==
[2018-04-16 09:19] VITALS: BMI 46.1
== END | disposition home or self-care (01) ==
LOC: D.HCCECHO 09:57
PROVIDERS: ATTEND Internal Medicine Cardiovascular Disease
DX: R06.02 Shortness of breath (principal)

== ENCOUNTER 2019-07-14 12:00 | Outpatient (CLI) | payer MEDICARE ==
[~2019-07-14] VITALS: Ht 180.3 cm; Wt 138.7 kg
--- NOTE | ~2019-07-14 | HEMODYNAMI ---
PATIENT:GARLAND CHICAS MEDICAL RECORD: [id number] : 44 LOCATION:[facility] ADMISSION DATE: 07/14/19 Generatedon:07/14/201914:04 Patient name: GARLAND CHICAS Patient #: [id number] SSN: [id number] : 1940 Date of study: 07/14/2019 Page: Of Hemodynamic Procedure Report Patient Data Patient Demographics Procedure consent was obtained First Name: GARLAND Gender: Male Last Name: CHICAS : 1940 [facility] Initial: TRACEMILAN Age: 79 year(s) Patient #: [id number] Race: SSN: [id number] Additional ID: [id number] Contact details [address]: [address] [place] [address] State: [place] City: [place] Zip code: [address] Past Medical History Allergies Allergen Reaction Date Comments Reported Sulfa drugs 01/17/2016 Sulfa drugs 02/19/2018 Other allergy 07/14/2019 SULFA Admission Admission Data Admission Date: 07/14/2019 Admission Time: 12:00 Arrival Date: 07/14/2019 Arrival Time: 0:00 Insurance Payor: Medicare HIC #: [id number] Height (in.): 71 BSA: 2.52 (m2) Height (cm.): 180.34 BMI: 42.54 (kg/m2) Weight (lbs.): 305 Weight (kg.): 138.35 Lab Results Lab Result Date: 07/14/2019 Lab Result Time: 0:00 Biochemistry Name Units Result Min Max BUN mg/dl 24 --(----)-* 7 18 Creatinine mg/dl 1 --(--*-)-- 0.6 1.3 eGFR ml/min 76.64485 *-(----)-- 90 120 NONAFRICAN CBC Name Units Result Min Max Hematocrit % 37.2 *-(----)-- 42 54 Hemoglobin g/dl 10.5 *-(----)-- 13.5 17.5 Procedure Procedure Types Cath Procedure Diagnostic Procedure [facility] w/Coronaries w/Grafts Sedation Charges Moderate Sedation up to 30 minutes Procedure Description Procedure Date Procedure Date: 07/14/2019 Procedure Start Time: 13:27 Procedure End Time: 14:01 Procedure Staff Name Function Jong Ahumada MD Performing Physician Alyce Bajwa RT Monitor Shireen Reinoso RN Nurse Zunilda Michael RT Scrub Carolynn Peres RT Cable Assembler Indication Dyspnea Procedure Data Cath Procedure Fluoroscopy Diagnostic fluoroscopy Total fluoroscopy Time: 8.7 time: 8.7 min min Diagnostic fluoroscopy Total fluoroscopy dose: dose: 1377 mGy 1377 mGy Contrast Material Contrast Material Type Amount (ml) Isovue 300 105 Entry Location Entry Primary Successful Side Size Upsize Upsize Entry Closure Succes sful Closure Location (Fr) 1 (Fr) 2 (Fr) Remarks Device Remarks Femoral Right 5 Fr Exoseal artery Estimated blood loss: 5 ml Diagnostic catheters Device Type Used For End Catheter Placement DIAGNOSTIC AR MOD 5Fr Procedure Catheter ([id number]) DIAGNOSTIC LCB 5Fr Procedure catheter ([id number]) DIAGNOSTIC AR2 MOD 5 Fr Procedure catheter ([id number]) MULTIPACK JL 4.0 5Fr Left Coronary catheter Angiography DIAGNOSTIC IM 5Fr Procedure catheter ([id number]) MULTIPACK Pigtail 5 Fr LV Angiography catheter Procedure Complications No complications Procedure Medications Medication Administration Route Dosage 0.9% NaCl I.V. 100 ml/hr Oxygen etCO2 Nasal cannula 2 l/min Lidocaine 2% added to field 20 Heparin Flush Bag added to field 2 bags (1000units/500ml NS) Versed I.V. 2 mg Fentanyl I.V. 50 mcg Versed I.V. 2 mg Fentanyl I.V. 50 mcg Hemodynamics Rest BSA: 2.52 (m2) O2 Consumption: Estimated: 303.27 (ml/min) O2 Consumption indexed : Estimated:120.35 (ml/min/m) Heart Rate: 85 (bpm) Pressure Samples Time Site Value (mmHg) Purpose Heart Use Rate(bpm) 13:53 LV 171/7,26 Snapshot 70 13:53 AO 166/79(114) Pullback 73 13:53 LV 172/7,26 Pullback 73 Gradients Valve Time Site 1 Site 2 Mean SEP/DFP Peak To Heart Use (mmHg) (sec/min) Peak Rate (mmHg) (bpm) Aortic 13:53 LV AO 12 20 6 73 172/7,26 166/79(114) Calculations Valve P-P Mean Valve Index Valve Source Name Gradient Area Flow (cm2) Aortic 6 12 6 12 Snapshots Pre Cath Intra NCS Post Cath Vital Signs Time Heart Resp SPO2 etCO2 NIBP (mmHg) Rhythm Pain Sedation Rate (ipm) (%) (mmHg) Status Level (bpm) 13:13:16 68 13 96 35 Measuring A-Fib 0 (11) 10(A) , No pain 13:14:16 91 19 97 18.6 201/97(153) A-Fib 0 (11) 10(A) , No pain 13:19:00 70 13 97 38 185/98(143) A-Fib 0 (11) 10(A) , No pain 13:23:45 66 16 97 35.8 172/88(147) A-Fib 0 (11) 10(A) , No pain 13:28:20 69 13 98 39.5 179/95(146) A-Fib 0 (11) 10(A) , No pain 13:33:19 69 13 98 19.3 Measuring A-Fib 0 (11) 10(A) , No pain 13:34:20 69 11 98 38 181/89(144) A-Fib 0 (11) 10(A) , No pain 13:38:57 68 12 94 26.1 170/82(118) A-Fib 0 (11) 9(A) , No pain 13:43:31 70 12 95 9.7 176/86(143) A-Fib 0 (11) 9(A) , No pain 13:48:14 61 15 97 18.6 174/79(156) A-Fib 0 (11) 9(A) , No pain 13:52:54 72 13 96 29 181/81(132) A-Fib 0 (11) 10(A) , No pain 13:57:31 67 16 95 10.4 173/88(125) A-Fib 0 (11) 10(A) , No pain 14:02:13 65 13 96 38 168/88(137) A-Fib 0 (11) 10(A) , No pain Medications Time Medication Route Dose Verified Delivered Reason Notes Eff ectiveness by by 13:11:38 0.9% NaCl I.V. 100 Jong Iyer used for ml/hr Brandyn Reinoso human service worker 13:11:45 Oxygen etCO2 2 Jong Shireen used for Nasal l/min Brandyn Reinoso procedure cannula RN 13:11:51 Lidocaine 2% added 20ml Jong Jong for local to vial Brandyn Ahumada MD anesthetic field 13:11:56 Heparin Flush added 2 Jong Jong used for Bag to bags Brandyn Ahumada MD procedure (1000units/500ml field NS) 13:26:02 Fentanyl I.V. 50 Jong Shireen for mcg Brandyn Reinoso sedation RN 13:26:53 Versed I.V. 2 mg Jong Shireen for Brandyn Reinoso sedation RN 13:35:39 Versed I.V. 2 mg Jong Shireen for Brandyn Reinoso sedation RN 13:35:43 Fentanyl I.V. 50 Jong Shireen for mcg Brandyn Reinoso sedation manager port Log Time Note 12:31:46 Informed consent obtained and on chart 12:33:42 Indication : Dyspnea 12:33:51 Arrival Date: 07/14/2019 12:00:00 AM 12:33:58 Insurance Payor : Medicare 12:37:03 Patient Height : 71 inches 12:37:28 Patient Weight : 305 lbs 12:37:48 Procedure Status Elective Heart Cath (OP). 12:38:16 Patient allergic to Other allergySULFA 12:39:23 Stress Test: yes; abnormal INFERIOR AND APICAL 12:59:33 Zunilda Michael RT(R) sent for patient. Start room use. 12:59:36 Time tracking: Regular hours (M-F 7:00 - 5:00) 12:59:44 Plan of Care:Hemodynamics will remain stable., Cardiac rhythm will remain stable., Comfort level will be maintained., Respiratory function will remain adequate., Patient/ family verbilizes understanding of procedure., Procedure tolerated without complication., Recovers from procedure without complications.. 13:06:22 Patient received from Pre/Post Procedure Room to CCL 1 Alert and oriented. Tansferred to table in Supine position. 13:06:25 Warm blankets applied, and narciso hugger turned on for patient comfort. 13:06:26 Correct patient and procedure confirmed by team. 13:06:27 ECG and BP/O2 sat monitors applied to patient. 13:11:28 Vital chart was started 13:11:38 0.9% NaCl 100 ml/hr I.V. was administered by Shireen Reinoso RN; used for procedure; Verbal order read back and verified. 13:11:45 Oxygen 2 l/min etCO2 Nasal cannula was administered by Shireen Reinoso RN ; used for procedure; Verbal order read back and verified. 13:11:51 Lidocaine 2% 20ml vial added to field was administered by Jong Ahumada MD ; for local anesthetic; Verbal order read back and verified. 13:11:56 Heparin Flush Bag (1000units/500ml NS) 2 bags added to field was administered by Jong Ahumada MD; used for procedure; Verbal order read back and verified. 13:16:52 Baseline sample Acquired. 13:17:25 Baseline sample Acquired. 13:18:01 Rhythm: atrial fibrillation 13:18:03 Full Disclosure recording started 13:18:03 - 13:18:11 H&P Date Dictated: 07/14/2019 H&P Addendum completed by physician on day of procedure. (MUST COMPLETE FOR ALL OUTPATIENTS), New H&P dictated by physician.. 13:18:13 Pre-procedure instructions explained to patient. 13:18:13 Pre-op teaching completed and patient verbalized understanding. 13:18:16 Family unavailable. 13:18:18 Patient NPO since Midnight. 13:18:27 Is the patient allergic to Iodine/contrast media? No. 13:18:30 Was the patient premedicated? Yes 13:18:37 Is patient on blood thinner?Yes 13:18:57 ACC The patient was administered the following blood thiners within the last 24 hours: Kassie 13:19:02 Patient diabetic? No. 13:19:11 ----Pre-sedation anethsthesia assessment.---- 13:19:15 Previous problem with sedation/anesthesia? No ? 13:19:17 Snore? Yes 13:19:20 Sleep apnea? Yes 13:19:23 Deviated septum? Unknown 13:19:25 Opens mouth fully? Yes 13:19:27 Sticks out tongue? Yes 13:19:40 Airway obstruction? Yes SLEEPS WITH CPAP 13:19:45 Dentures? No ? 13:19:56 Pre procedure: right dorsailis pedis pulse Doppler 13:20:18 IV patent on arrival in left hand with 0.9% NaCl at KVO. 13:20:27 Right groin area was prepped with chlora-prep and draped in sterile fashion 13:20:30 Alarms reviewed by R. N. 13:20:31 Sharps counted by scrub and verified by R.N. 13:25:07 Physician arrived 13:25:14 --------ALL STOP TIME OUT------ 13:25:15 Final Timeout: patient, procedure, and site verified with staff and physician. All members of the team are in agreement. 13:25:18 2) 60-89 Mildly reduced kidney function, and other findings (as for stage 1) point to kidney disease. 13:25:18 Right groin site verified by team. 13:25:24 Maximum allowable contrast dose (3.7 X eGFR X 0.75)213 ml. 13:25:24 Fire Safety Assessment: A--An alcohol-based skin anteseptic being used preoperatively., C--Open oxygen or nitrous oxide is being used., D--An ESU, laser, or fiber-optic light is being used. 13:25:30 Physical assessment completed. ASA score P 2 - A patient with mild systemic disease as per Jong Ahumada MD. 13:25:42 Sedation plan: IV Moderate Sedation Medication:Versed, Fentanyl 13:25:50 Use device set Femoral Dx 13:26:02 Fentanyl 50 mcg I.V. was administered by Shireen Reinoso RN; for sedation ; Verbal order read back and verified. 13:26:40 ACIST Syringe (07812) opened to sterile field. 13:26:41 Bag Decanter () opened to sterile field. 13:26:42 Medline Cath Pack ([id number]) opened to sterile field. 13:26:44 ACIST Hand Control (31915) opened to sterile field. 13:26:45 ACIST Manifold (53616) opened to sterile field. 13:26:46 DIAGNOSTIC Multipack 5Fr catheter set (PO7520) opened to sterile field. 13:26:48 Tegaderm 4 x 4 (1626W) opened to sterile field. 13:26:50 SHEATH 5FR Barre (TXR203) opened to sterile field. 13:26:50 EMERALD Guide Wire (339-191) opened to sterile field. 13:26:53 Versed 2 mg I.V. was administered by Shireen Reinoso RN; for sedation; Verbal order read back and verified. 13:26:57 Procedure started. 13:27:02 Local anesthetic to right femoral artery with Lidocaine 2% by Jong salmeron MD.INITIAL ACCESS ONLY 13:27:24 Zero performed for pressure channel P1 13:34:05 A 5 Fr sheath was inserted into the Right Femoral artery 13:35:38 A DIAGNOSTIC AR MOD 5Fr Catheter ([id number]) was advanced over the wire and used for Procedure. 13:35:39 Versed 2 mg I.V. was administered by Shireen Reinoso RN; for sedation; Verbal order read back and verified. 13:35:43 Fentanyl 50 mcg I.V. was administered by Shireen Reinoso RN; for sedation ; Verbal order read back and verified. 13:38:05 WHOLEY 300cm 0.035 wire ([id number]) opened to sterile field. 13:38:23 WHOLEY 300 wire advanced. 13:38:57 RCA angiography performed. 13:40:30 SVG to RPDA occluded. 13:41:02 Catheter removed. 13:42:44 A DIAGNOSTIC LCB 5Fr catheter ([id number]) was advanced over the wire and used for Procedure. 13:42:52 Catheter removed. 13:44:46 A DIAGNOSTIC AR2 MOD 5 Fr catheter ([id number]) was advanced over the wire and used for Procedure. 13:45:30 SVG to Circ angiography performed. 13:45:48 Catheter removed. 13:46:58 A MULTIPACK JL 4.0 5Fr catheter was advanced over the wire and used for Left Coronary Angiography. 13:47:30 LCA angiography performed. 13:48:27 Catheter removed. 13:49:25 A DIAGNOSTIC IM 5Fr catheter ([id number]) was advanced over the wire and used for Procedure. 13:51:10 GALVAN to LAD angiography performed. 13:51:35 Catheter removed. 13:51:46 A MULTIPACK Pigtail 5 Fr catheter was advanced over the wire and used for LV Angiography. 13:51:54 Injector settings: Ml/sec: 5, Volume: 15, 13:51:57 LV gram done using DENISE 13:53:39 EF : 50 % 13:53:51 LV hemodynamics recorded. 13:54:00 Catheter removed. 13:54:10 EXOSEAL 5Fr (EX500) opened to sterile field. 13:54:56 Sheath removed intact; hemostasis achieved with Exoseal to the Right Femoral artery. 13:55:07 Contrast amount:Isovue 300 105ml. 13:55:10 Maximum allowable dose exceeded? No. 13:55:19 Procedure ended.(Physican Out) 13:55:27 Fluoroscopy time 08.70 minutes. 13:55:34 Flurop Dose total: 1377 13:55:34 Fluoroscopy dose: 1377 mGy 13:55:42 Dose Area Product 62671 mGy/cm. 13:55:45 Sharps counted by scrub and verified by R.N. 13:55:48 Insertion/operative site no bleeding no hematoma. 13:55:53 Post-op/insertion site Right Femoral artery dressed using a 4 x 4 and Tegaderm. 13:55:59 Post right femoral artery:stable 13:56:06 Post-procedure physical assessment completed. ASA score P 2 - A patient with mild systemic disease as per Jong Ahumada MD. 13:56:11 Post procedure rhythm: unchanged. 13:56:14 Estimated blood loss: 5 ml 13:56:17 Post procedure instruction explained to patient.Patient verbalizes understanding. 13:56:18 Patient needs reinforcement of post procedure teaching. 13:58:00 Procedure type changed to Cath procedure, Diagnostic procedure, LHC, LH C w/Coronaries w/Grafts, Sedation Charges, Moderate Sedation up to 30 minutes 13:58:02 Procedure and supply charges have been captured, reviewed, submitted an d are correct. 13:58:39 Lab Result : BUN 24 mg/dl 13:58:39 Lab Result : Creatinine 1 mg/dl 13:58:39 Lab Result : eGFR NONAFRICAN 76.37722 ml/min 13:58:39 Lab Result : Hemoglobin 10.5 g/dl 13:58:39 Lab Result : Hematocrit 37.2 % 13:58:55 Lab results completed and on chart. 14:01:05 Risk of Mortality: 0.5 14:01:10 Risk of blood transfusion: 7.2 14:01:15 Risk of LAURA: 4.0 14:01:31 Procedure Complication : No complications 14:01:35 Vital chart was stopped 14:01:42 [facility] Findings: mild to moderate CAD (<70%) 14:01:46 Operative report dictated upon procedure completion. 14:01:47 See physician's report for complete and final results. 14:01:49 Report given to Pre/Post Procedure Room. 14:01:54 Patient transfered to Pre/Post Procedure Room with Stretcher. 14:01:57 Procedure ended. 14:01:57 Full Disclosure recording stopped 14:02:02 End room use (Document Last) 14:02:50 End room use (Document Last) Device Usage Item Name Manufacture Quantity Catalog Hospital Part Current Minimal L ot# / Number Charge Number Stock Stock Serial# Code ACIST Acist 1 08672 [id number] [id number] [id number] 20 Syringe Medical (63497) Systems Inc Bag Microtek 1 2001S 144324 59340 462742 5 Decanter Medical Inc. () Medline Medline 1 [id number] 745650 93711 113698 5 Cath Pack ([id number]) ACIST Hand Acist 1 00778 500479 745820 041473 5 Control Medical (87381) Systems Inc ACIST Acist 1 85832 142960 933769 220265 5 Manifold Medical (34032) Systems Inc DIAGNOSTIC Cardinal 1 [id number] 384950 53222 830097 30 Multipack Health 5Fr catheter set (VZ3987) Tegaderm 4 3M 1 1626W 144202 624951 293333 5 x 4 (1626W) SHEATH 5FR Terumo 1 IPT388 693491 201660 403235 5 Barre (GSR529) EMERALD Cardinal 1 502-455 050615 299051 517983 5 Guide Wire Health (502-455) DIAGNOSTIC Cardinal 1 [id number] 108671 962164 392205 15 AR MOD 5Fr Health Catheter (517973V) Exiles [employer], 1 [id number] 650638 262810 666013 3 300cm 0.035 wire ([id number]) DIAGNOSTIC Cardinal 1 [id number] 173700 053107 595889 5 LCB 5Fr Health catheter (972519A) DIAGNOSTIC Cardinal 1 692987W 915991 892481 616585 20 AR2 MOD 5 Health Fr catheter (020862I) MULTIPACK Cardinal 1 576476 5 JL 4.0 5Fr Health catheter DIAGNOSTIC Cardinal 1 462427P 067555 817395 586526 5 IM 5Fr Health catheter (950554D) MULTIPACK Cardinal 1 475925 5 Pigtail 5 Health Fr catheter EXOSEAL 5Fr Cardinal 1 EX500 107139 584397 804697 10 (EX500) Health Signature Audit [place] Stage Time Signature Unsigned Intra-Procedure 07/14/2019 Alyce 2:02:50 PM Aydee RT(R) (CV) Intra-Procedure 07/14/2019 Shireen Reinoso 2:03:25 PM RN Intra-Procedure 07/14/2019 Jong Ahumada MD 2:04:08 PM [place] [address] [place] [address]
[2019-07-14] MEDS ORDERED: AMBIEN5 MG PO (12:29)
[2019-07-14 12:54] VITALS: BP 175/87; Ht 180.3 cm; Wt 138.7 kg
[2019-07-14 12:54] LABS: BASOPHILS 0.3 % (0-2); HEMATOCRIT 37.2 % (42.0-54.0); HEMOGLOBIN 10.5 g/dL (13.5-17.5); IMMATURE GRANULOCYTES 0.3 % (0-5); LYMPHOCYTES 14.7 % (15-50); MCH 24.1 pg (26.0-34.0); MCHC 28.2 g/dL (31.0-37.0); MCV 85.3 fL (80.0-100.0); MEAN PLATELET VOLUME 8.7 fL (7.4-10.4); MONOCYTES 7.7 % (2-11); PLATELET COUNT 308 10x3/uL (130-400); RBC 4.36 10x6/uL (4.20-6.10); RDW 17.9 % (11.5-14.5); WBC 10.8 10x3/uL (4.8-10.8)
[2019-07-14 13:08] LABS: ALT (SGPT) 22 U/L (10-68); CALC OSMOLALITY 286 mosm/kg (275-300); CALCIUM 9.2 mg/dL (8.5-10.1); CARBON DIOXIDE 31.8 mmol/L (21.0-32.0); CHLORIDE - SERUM 104 mmol/L (98-107); CHOL - HDL RATIO 4.4 ratio (2.3-4.9); CHOLESTEROL, TOTAL 158 mg/dL (0-200); GLUCOSE 130 mg/dL (74-106); HDL CHOLESTEROL 36 mg/dL (32-96); LDL CHOLESTEROL 108 mg/dL (0-100); POTASSIUM - SERUM 4.3 mmol/L (3.5-5.1); SODIUM 141 mmol/L (136-145); TRIGLYCERIDE 70 mg/dL (30-200); UREA NITROGEN 24 mg/dL (7-18); eGFR NON AFRICAN AMERICAN 77 mL/min (90-120)
--- NOTE | 2019-07-14 14:05 | NUR ---
PT RECEIVED VIA STRETCHER FROM GENERAL UTILITY MACHINE OPERATOR FOR RECOVERY. PT SLEEPING BUT VERBALLY AROUSABLE. PT C/O PAIN IN L SHOULDER WHICH IS A CHRONIC PROBLEM. PILLOW PLACED UNDER SHOULDER PER PT REQUEST. PT DENIES ANY CHEST PAIN OR DISCOMFORT. IV PATENT INFUSING VIA R ARM PER ORDERS. PT PLACED ON WORD PROCESSING SPECIALIST AND O2 VIA NC AT 1L. R GROIN W 5FR EXOCELE, DRESSING CDI. SITE SOFT, NO S/S HEMATOMA OR BLEEDING NOTED. LEG PINK AND WARM, PEDAL PULSES PALPABLE. PT INSTRUCTED TO KEEP HEAD ON PILLOW AND LEG STRAIGHT, HE VERBALIZED UNDERSTANDING. CALL LIGHT IN REACH. HR 62, BP 177/85, RR 14, SAT 95.
--- NOTE | 2019-07-14 14:30 | NUR ---
PT RESTING COMFORTABLY, DENIES PAIN OR NEEDS. VSS. R GROIN SOFT, DRESSING REMAINS CDI NO S/S HEMATOMA OR BLEEDING. CALL LIGHT IN REACH.
--- NOTE | 2019-07-14 15:15 | NUR ---
PT DOING WELL, R GROIN SOFT DRESSING CDI NO S/S HEMATOMA NOTED. HOB ELEVATED SLIGHTLY, SANDWICH AND DRINK SERVED. PT DENIES PAIN OR OTHER NEEDS AT THIS TIME. VSS. CALL LIGHT IN REACH
--- NOTE | 2019-07-14 15:50 | NUR ---
DISCHARGE INSTRUCTIONS REVIEWED W PT, HE VERBALIZED UNDERSTANDING. PT GIVEN A REFILL PRESCRIPTION FOR [facility] AND EXPLAINED THAT HE CAN GO BY THE CLINIC TOMORROW AND GET A DISCOUNT CARD PER [facility]. IV REMOVED W CATH INTACT, MONITORS AND O2 REMOVED. R GROIN REMAINS SOFT, NO S/S HEMATOMA NOTED. PT UP TO DRESS FOR DISCHARGE.
--- NOTE | 2019-07-14 16:05 | NUR ---
PT DISCHARGE VIA WC TO RIDE WAITING IN PRIVATE VEHICLE. PT HAD ALL BELONGINGS AND DISCHARGE PAPERWORK IN HAND.
== END 2019-07-14 16:05 | disposition home or self-care (01) ==
LOC: D.CATH 12:00
PROVIDERS: ATTEND Internal Medicine Cardiovascular Disease
DX: I25.119 Atherosclerotic heart disease of native coronary artery with unspecified angina pectoris (principal); I25.82 Chronic total occlusion of coronary artery; K21.9 Gastro-esophageal reflux disease without esophagitis; R06.02 Shortness of breath; I48.91 Unspecified atrial fibrillation

== ENCOUNTER 2019-09-17 10:54 | Outpatient (CLI) | payer MEDICARE ==
[~2019-09-17] VITALS: Ht 180.3 cm; Wt 139.0 kg
--- NOTE | ~2019-09-17 | HEMODYNAMI ---
PATIENT:GARLAND CHICAS MEDICAL RECORD: [id number] : 44 LOCATION:[facility] ADMISSION DATE: 09/17/19 Generatedon:09/17/201913:18 Patient name: GARLAND CHICAS Patient #: [id number] SSN: [id number] : 1940 Date of study: 09/17/2019 Page: Of Hemodynamic Procedure Report Patient Data Patient Demographics Procedure consent was obtained First Name: GARLNAD Gender: Male Last Name: AVIVA : 1940 [facility] Initial: TRACEMILAN Age: 79 year(s) Patient #: [id number] Race: SSN: [id number] Additional ID: [id number] Contact details Address: [address] [place], [place] [address] State: [place] City: [place] Zip code: [address] Past Medical History Allergies Allergen Reaction Date Comments Reported Sulfa drugs 01/17/2016 Sulfa drugs 02/19/2018 Other allergy 07/14/2019 SULFA Stings 09/17/2019 sulfa Admission Admission Data Admission Date: 09/17/2019 Admission Time: 10:54 Arrival Date: 09/17/2019 Arrival Time: 0:00 Admit Source: Other Insurance Payor: Medicare Height (in.): 63 BSA: 2.26 (m2) Height (cm.): 160.02 BMI: 51.19 (kg/m2) Weight (lbs.): 289 Weight (kg.): 131.09 Procedure Procedure Types Cath Procedure Diagnostic Procedure Cardioversion External Procedure Description Procedure Date Procedure Date: 09/17/2019 Procedure Start Time: 13:02 Procedure End Time: 13:16 Procedure Staff Name Function Jong Ahumada MD Performing Physician Zunilda Michael RT Monitor Dalila Durán RN Nurse Wesley Felix CRNA Additional personnel Procedure Data Procedure Complications No complications Procedure Medications Medication Administration Route Dosage Oxygen etCO2 Nasal cannula 2 l/min Refer to Anesthesia Notes for Sedation Medications Hemodynamics Rest BSA: 2.26 (m2) O2 Consumption: Estimated: 246.42 (ml/min) O2 Consumption indexed : Estimated:109.04 (ml/min/m) Heart Rate: 55 (bpm) Snapshots Pre Cath Intra NCS Post Cath Vital Signs Time Heart Resp SPO2 etCO2 NIBP (mmHg) Rhythm Pain Sedation Rate (ipm) (%) (mmHg) Status Level (bpm) 12:53:52 65 15 97 0 183/93(158) A-Fib 0 (11) 10(A) , No pain 12:58:39 62 16 98 27.6 172/99(140) A-Fib 0 (11) 10(A) , No pain 13:07:09 61 17 93 8.9 167/73(139) NSR 0 (11) 9(A) , No pain 13:10:15 59 19 93 2.2 156/66(135) NSR 0 (11) 9(A) , No pain 13:13:34 60 18 97 18.7 167/81(144) NSR 0 (11) 9(A) , No pain Medications Time Medication Route Dose Verified Delivered Reason Notes Effective ness by by 12:53:50 Oxygen etCO2 2 Jong Dalila used for Nasal l/min Brandyn Durán pockets and pieces necktie operator cannula 12:53:56 Refer to Jong Dalila Anesthesia Brandyn Durán RN Notes for Sedation Medications Procedure Log Time Note 12:04:30 Arrival Date: 09/17/2019 12:00:00 AM 12:04:31 Admit Source: Other 12:04:35 Insurance Payor : Medicare 12:06:27 Patient Height : 63 inches 12:06:30 Patient Weight : 289 lbs 12:12:18 Procedure Status Elective Heart Cath (OP). 12:12:21 Zunilda JENNINGS(R) sent for patient. Start room use. 12:12:22 Time tracking: Regular hours (M-F 7:00 - 5:00) 12:12:28 Plan of Care:Hemodynamics will remain stable., Cardiac rhythm will remain stable., Comfort level will be maintained., Respiratory function will remain adequate., Patient/ family verbilizes understanding of procedure., Procedure tolerated without complication., Recovers from procedure without complications.. 12:12:40 H&P Date Dictated: 09/10/2019 Within 30 days and on chart., H&P Addendum completed by physician on day of procedure. (MUST COMPLETE FOR ALL OUTPATIENTS). 12:12:52 Quick Combo opened to sterile field. 12:48:42 Family in patients room. 12:48:44 Patient NPO since Midnight. 12:49:01 Patient allergic to Stingssulfa 12:49:19 Is the patient allergic to Iodine/contrast media? N/A. 12:49:21 Was the patient premedicated? Yes 12:49:46 Snore? Yes 12:49:56 Patient diabetic? No. 12:50:32 Is patient on blood thinner?Yes 12:50:38 ACC The patient was administered the following blood thiners within the last 24 hours: Eliquis 12:52:06 Signed procedure consent form obtained from patient. 12:52:14 Patient received from Pre/Post Procedure Room to CCL 1 Alert and oriented. Tansferred to table in Supine position. 12:52:17 Warm blankets applied, and narciso hugger turned on for patient comfort. 12:52:18 Correct patient and procedure confirmed by team. 12:52:19 ECG and BP/O2 sat monitors applied to patient. 12:52:21 Vital chart was started 12:52:29 Baseline sample Acquired. 12:53:50 Oxygen 2 l/min etCO2 Nasal cannula was administered by Dalila Durán RN; used for procedure; Verbal order read back and verified. 12:53:56 Refer to Anesthesia Notes for Sedation Medications was administered by Dalila Durán RN; ; Verbal order read back and verified. 12:54:10 Patient pain scale 0/10 ?. 12:54:17 IV patent on arrival in left hand with 0.9% NaCl at KVO. 12:54:19 Lab results completed and on chart. 12:54:23 Alarms reviewed by R. N. 12:54:23 Sharps counted by scrub and verified by R.N. 12:54:25 Physician arrived 12:54:25 --------ALL STOP TIME OUT------ 12:54:36 Final Timeout: patient, procedure, and site verified with staff and physician. All members of the team are in agreement. 12:54:42 Fire Safety Assessment: A--An alcohol-based skin anteseptic being used preoperatively., C--Open oxygen or nitrous oxide is being used., D--An ESU, laser, or fiber-optic light is being used. 12:54:45 Physical assessment completed. ASA score P 2 - A patient with mild systemic disease as per Jong Ahumada MD. 12:55:07 Wesley Felix CRNA present and monitoring patient for TIVA. 12:55:23 Quick combo pads placed on patients chest and back. 12:59:48 Baseline sample Acquired. 12:59:53 Full Disclosure recording started 13:02:26 Procedure started. 13:04:37 Defibrillator synced and charged to 200 Joules. 13:04:53 Shock delivered. 13:05:05 Patient cardioverted to sinus rhythm . 13:05:16 Procedure ended.(Physican Out) 13:08:47 Post-procedure physical assessment completed. ASA score P 2 - A patient with mild systemic disease as per Jong Ahumada MD. 13:08:50 Post procedure rhythm: sinus rhythm 13:08:54 Post procedure instruction explained to patient.Patient verbalizes understanding. 13:09:01 Procedure and supply charges have been captured, reviewed, submitted and are correct. 13:09:40 Procedure Complication : No complications 13:16:26 Vital chart was stopped 13:16:30 See physician's report for complete and final results. 13:16:32 Report given to Pre/Post Procedure Room. 13:16:36 Patient transfered to Pre/Post Procedure Room with Stretcher. 13:16:38 Procedure ended. 13:16:38 Full Disclosure recording stopped 13:16:44 End room use (Document Last) 13:17:18 End room use (Document Last) 13:18:00 End room use (Document Last) Device Usage Item Manufacture Quantity Catalog Hospital Part Current Minimal Lot# / Name Number Charge Number Stock Stock Rich wy# Code Hotalot 1 [id number] 5 Combo Signature Audit [place] Stage Time Signature Unsigned Intra-Procedure 09/17/2019 Zunilda Michael 1:17:18 PM RT(R) Intra-Procedure 09/17/2019 Dalila Durán RN 1:18:00 PM Intra-Procedure 09/17/2019 Jong Ahumada MD 1:18:25 PM [place] [id number] [place] [id number]
[~2019-09-17 10:54] MED LIST changes: +AMBIEN5 MG PO
[2019-09-17] MEDS ORDERED: BETAPACE 80 MG80 MG PO (11:21)
[2019-09-17 11:27] VITALS: BP 162/75; Ht 180.3 cm; Wt 139.0 kg
[2019-09-17 11:45] LABS: CREATININE - SERUM 0.9 mg/dL (0.6-1.3); GLUCOSE 132 mg/dL (74-106); UREA NITROGEN 18 mg/dL (7-18)
[2019-09-17 11:46] LABS: CALC OSMOLALITY 284 mosm/kg (275-300); CARBON DIOXIDE 32.6 mmol/L (21.0-32.0); CHLORIDE - SERUM 104 mmol/L (98-107); POTASSIUM - SERUM 4.1 mmol/L (3.5-5.1); SODIUM 141 mmol/L (136-145); eGFR NON AFRICAN AMERICAN 87 mL/min (90-120)
[2019-09-17 12:10] LABS: INR 1.53 (0.85-1.17); PROTIME 18.2 SECONDS (11.6-15.0)
[2019-09-17 12:14] LABS: BASOPHILS 0.3 % (0-2); EOSINOPHILS 1.1 % (0-7); HEMATOCRIT 36.9 % (42.0-54.0); HEMOGLOBIN 10.7 g/dL (13.5-17.5); IMMATURE GRANULOCYTES 0.2 % (0-5); LYMPHOCYTES 15.3 % (15-50); MCH 24.7 pg (26.0-34.0); MONOCYTES 8.6 % (2-11); NEUTROPHILS 74.5 % (40-80); PLATELET COUNT 279 10x3/uL (130-400); RBC 4.34 10x6/uL (4.20-6.10); RDW 17.4 % (11.5-14.5); WBC 10.3 10x3/uL (4.8-10.8)
--- NOTE | 2019-09-17 13:30 | NUR ---
PT RECEIVED VIA STRETCHER FROM POCKETBOOK MAKER POST CARDIOVERSION FOR RECOVERY. PT AWAKE, DENIES PAIN OR DISCOMFORT. RED AREA IN MIDDLE OF CHEST. PT PLACED ON CARDIAC MONITORS AND O2 VIA NC AT 2L. HR 57, BP 178/73, RR 16, SAT 97. IV PATENT INFUSING VIA ORDERS. CALL LIGHT IN REACH
--- NOTE | 2019-09-17 13:45 | NUR ---
PT RESTING COMFORTABLY, DENIES PAIN OR DISCOMFORT. HR STILL SR, RATE 56. BP 178/73, RR 12. HOB ELEVATED, SANDWICH AND DRINK SERVED. CALL LIGHT IN REACH. PT'S RIDE CONTACTED WITH DISCHARGE TIME
--- NOTE | 2019-09-17 14:05 | NUR ---
DISCHARGE INSTRUCTIONS REVIEWED W PT, HE VERBALIZED UNDERSTANDING. IV REMOVED W CATH INTACT, MONITORS REMOVED. PT UP TO DRESS FOR DISCHARGE.
--- NOTE | 2019-09-17 14:13 | NUR ---
PT AMBULATED TO BR, VOIDING W/O DIFFICULITY. 1320 PT DISCHARGED VIA WC TO FRIEND WAITING IN PRIVATE VEHICLE. PT HAD ALL BELONGINGS AND DISCHARGE PAPERWORK
== END 2019-09-17 14:20 | disposition home or self-care (01) ==
LOC: D.CATH 10:54
PROVIDERS: ATTEND Internal Medicine Interventional Cardiology
DX: I48.91 Unspecified atrial fibrillation (principal); K21.9 Gastro-esophageal reflux disease without esophagitis; I10 Essential (primary) hypertension; I25.10 Atherosclerotic heart disease of native coronary artery without angina pectoris; R06.02 Shortness of breath

== ENCOUNTER → 2020-05-18 14:18 | Outpatient (CLI) | payer MEDICARE ==
[2019-09-17 11:27] VITALS: BMI 42.7
[~2020-05-18 14:18] MED LIST changes: +BETAPACE 80 MG80 MG PO
== END | disposition home or self-care (01) ==
LOC: D.US 14:18
PROVIDERS: ATTEND Internal Medicine Cardiovascular Disease
DX: I65.23 Occlusion and stenosis of bilateral carotid arteries (principal)

== ENCOUNTER → 2020-05-31 15:18 | Outpatient (CLI) | payer MEDICARE ==
[2019-09-17 11:27] VITALS: BMI 42.7
== END | disposition home or self-care (01) ==
LOC: D.CT 15:00
PROVIDERS: ATTEND Internal Medicine Cardiovascular Disease
DX: I65.29 Occlusion and stenosis of unspecified carotid artery (principal)

== ENCOUNTER → 2020-08-30 15:51 | Outpatient (CLI) | payer MEDICARE ==
[2019-09-17 11:27] VITALS: BMI 42.7
== END | disposition home or self-care (01) ==
LOC: D.RT 09:00 → D.RAD 10:00 → D.RT 15:00 → D.RAD 15:00 → D.RT 15:51
PROVIDERS: ATTEND Internal Medicine Pulmonary Disease
DX: R06.09 Other forms of dyspnea (principal)